=== PATIENT | female | born 1995 | race Two or more races ===

== ENCOUNTER 2023-07-31 14:03 | Emergency (ER) | payer MEDICAID, OTHER ==
[~2023-07-31] VITALS: Ht 162.6 cm; Wt 75.4 kg
[2023-07-31 15:10] LABS: Basophils # (auto) 0 10 ^3/uL (0-0.2); Basophils % (auto) 0.3 % (0.0-2.0); Eosinophils # (auto) 0 10 ^3/uL (0-0.8); Eosinophils % (auto) 0.1 % (0.0-7.0); Hematocrit 41.5 % (36.0-46.0); Hemoglobin 13.8 g/dL (12.2-16.2); Lymphocytes # (auto) 0.8 10 ^3/uL (0.4-5.4); Lymphocytes % (auto) 11.1 % (10.0-50.0); Mean Corpuscular Hemoglobin 29.5 pg (28.0-32.0); Mean Corpuscular Hgb Conc. 33.3 g/dL (32.0-36.0); Mean Corpuscular Volume 88.4 fL (80.0-100.0); Monocytes # (auto) 0.3 10 ^3/uL (0-1.3); Monocytes % (auto) 3.7 % (0.0-12.0); Neutrophils # (auto) 6.3 10 ^3/uL (1.6-8.6); Neutrophils % (auto) 84.8 % (37.0-80.0); Red Cell Distribution Width 13.5 % (11.8-14.3); White Blood Cell 7.4 10^3/uL (4.4-10.8)
[2023-07-31 15:22] LABS: Alanine Aminotransferase 12 U/L (7-40); Albumin 4.5 g/dL (3.2-4.8); Alkaline Phosphatase 83 U/L (46-116); Anion Gap 11 (5-15); Aspartate Aminotransferase 22 U/L (13-40); BUN/Creatinine Ratio 16.9 (10.0-20.0); Blood Urea Nitrogen 13 mg/dL (9-23); Calcium 9.4 mg/dL (8.5-10.1); Carbon Dioxide 25 mmol/L (20-30); Chloride 104 mmol/L (98-107); Glucose 97 mg/dL (74-106); Potassium 3.8 mmol/L (3.5-5.1); Sodium 140 mmol/L (136-145); Total Protein 7.2 g/dL (5.7-8.2)
[2023-07-31 16:41] VITALS: BP 107/71; PULSE 110; RESP 16; O2SAT 100
[2023-07-31] MEDS: THIAMINE 100mg/ml INJ (200mg/2ml VIAL) IV ONE (16:59)
[2023-07-31] MEDS: SODIUM CHLORIDE 0.9% 1,000 ML IVB ONE (16:59)
== END 2023-07-31 18:46 | disposition home or self-care (01) ==
LOC: ER 14:03
DX: F10.10 Alcohol abuse, uncomplicated (principal); F17.210 Nicotine dependence, cigarettes, uncomplicated; F15.90 Other stimulant use, unspecified, uncomplicated; Y90.0 Blood alcohol level of less than 20 mg/100 ml
CPT/HCPCS: 36415; 80053; 84484; 85025; 93005; 96361; 96374; 99284; J3411; J7030

== ENCOUNTER 2023-10-26 22:21 | Emergency (ER) | payer MEDICAID ==
[~2023-10-26] VITALS: Ht 162.6 cm; Wt 77.8 kg
[2023-10-26 23:23] LABS: Basophils # (auto) 0.1 10 ^3/uL (0-0.2); Eosinophils # (auto) 0.3 10 ^3/uL (0-0.8); Eosinophils % (auto) 3.6 % (0.0-7.0); Hemoglobin 12.9 g/dL (12.2-16.2); Lymphocytes # (auto) 3.5 10 ^3/uL (0.4-5.4); Lymphocytes % (auto) 42.2 % (10.0-50.0); Mean Corpuscular Hemoglobin 29.2 pg (28.0-32.0); Mean Corpuscular Hgb Conc. 33.1 g/dL (32.0-36.0); Mean Corpuscular Volume 88.3 fL (80.0-100.0); Monocytes # (auto) 0.4 10 ^3/uL (0-1.3); Monocytes % (auto) 4.5 % (0.0-12.0); Neutrophils % (auto) 48.7 % (37.0-80.0); Red Blood Cells 4.41 10^6/uL (4.0-5.20); Red Cell Distribution Width 14.3 % (11.8-14.3); White Blood Cell 8.3 10^3/uL (4.4-10.8)
[2023-10-26 23:41] LABS: INR 0.97 (0.9-1.15); Partial Thromboplastin Time 24.5 SEC (24.5-34.5); Prothrombin Time 10.3 sec (9.3-11.8)
[2023-10-26 23:42] LABS: Albumin 3.8 g/dL (3.2-4.8); Alkaline Phosphatase 62 U/L (46-116); Anion Gap 7 (5-15); Aspartate Aminotransferase 11 U/L (13-40); BUN/Creatinine Ratio 10.3 (10.0-20.0); Bilirubin, Total 0.2 mg/dL (0.2-1.0); Blood Urea Nitrogen 8 mg/dL (9-23); Calcium 9.5 mg/dL (8.7-10.4); Carbon Dioxide 23 mmol/L (20-30); Chloride 108 mmol/L (98-107); Glucose 100 mg/dL (74-106); Lipase 33 U/L (12-53); Magnesium 1.8 mg/dL (1.6-2.6); Potassium 3.7 mmol/L (3.5-5.1); Sodium 138 mmol/L (136-145); Total Protein 6.6 g/dL (5.7-8.2)
[2023-10-26 23:43] LABS: Alanine Aminotransferase < 9 U/L (7-40)
[2023-10-27] MEDS ORDERED: TRAM-626 PO (01:14)
[2023-10-27] MEDS ORDERED: ZOFR4T PO (01:14)
[2023-10-27 01:31] VITALS: BP 111/74; PULSE 77; RESP 20; TEMP 98; O2SAT 97
[2023-10-27] MEDS: KETOROLAC TROMETH 30 MG/ML 1ML VIAL IM ONE (01:41)
[2023-10-27] MEDS: ONDANSETRON ODT 4 MG TAB PO ONE (01:41)
== END 2023-10-27 01:48 | disposition home or self-care (01) ==
LOC: ER 22:21
DX: K80.20 Calculus of gallbladder without cholecystitis without obstruction (principal); F17.210 Nicotine dependence, cigarettes, uncomplicated; F15.90 Other stimulant use, unspecified, uncomplicated; Z79.899 Other long term (current) drug therapy
CPT/HCPCS: 36415; 71045; 76705; 80053; 83690; 83735; 83880; 84443; 84484; 85025; 85610; 85730; 93005; 96372; 99285; J1885; Q0162

== ENCOUNTER 2023-12-10 19:05 | Emergency (ER) | payer MEDICAID ==
[~2023-12-10] VITALS: Ht 162.6 cm; Wt 71.6 kg
[~2023-12-10 19:05] MED LIST: TRAM-626 PO; ZOFR4T PO
[2023-12-10 19:08] VITALS: BP 110/68; PULSE 85; RESP 20; O2SAT 97
== END 2023-12-10 23:31 | disposition left against medical advice (07) ==
LOC: ER 19:05
DX: M79.10 Myalgia, unspecified site (principal); Z53.21 Procedure and treatment not carried out due to patient leaving prior to being seen by health care provider

== ENCOUNTER 2023-12-15 17:52 | Inpatient (IN) | payer MEDICAID ==
[~2023-12-15] VITALS: Ht 162.6 cm; Wt 168.8 kg
[2023-12-15] MEDS: D5W/SOD CHLO 0.9% 1,000 ML IV SCH (03:00)
[2023-12-15 19:56] LABS: Alanine Aminotransferase 14 U/L (7-40); Albumin 4.6 g/dL (3.2-4.8); Alkaline Phosphatase 64 U/L (46-116); Anion Gap 9 (5-15); Aspartate Aminotransferase 9 U/L (13-40); BUN/Creatinine Ratio 11.9 (10.0-20.0); Bilirubin, Total 0.4 mg/dL (0.2-1.0); Blood Urea Nitrogen 8 mg/dL (9-23); Calcium 10.2 mg/dL (8.7-10.4); Carbon Dioxide 19 mmol/L (20-30); Chloride 111 mmol/L (98-107); Glucose 90 mg/dL (74-106); Lipase 40 U/L (12-53); Potassium 3.6 mmol/L (3.5-5.1); Sodium 139 mmol/L (136-145); Total Protein 7.5 g/dL (5.7-8.2)
[2023-12-15 20:07] LABS: Basophils # (auto) 0.1 10 ^3/uL (0-0.2); Eosinophils # (auto) 0.3 10 ^3/uL (0-0.8); Eosinophils % (auto) 3.2 % (0.0-7.0); Hematocrit 42.3 % (36.0-46.0); Hemoglobin 14.5 g/dL (12.2-16.2); Lymphocytes # (auto) 3.4 10 ^3/uL (0.4-5.4); Lymphocytes % (auto) 42.2 % (10.0-50.0); Mean Corpuscular Hemoglobin 30.3 pg (28.0-32.0); Mean Corpuscular Hgb Conc. 34.3 g/dL (32.0-36.0); Mean Corpuscular Volume 88.3 fL (80.0-100.0); Monocytes # (auto) 0.3 10 ^3/uL (0-1.3); Monocytes % (auto) 3.7 % (0.0-12.0); Neutrophils % (auto) 49.9 % (37.0-80.0); Nucleated Red Blood Cells % 0.1 %; Red Blood Cells 4.79 10^6/uL (4.0-5.20); Red Cell Distribution Width 13.9 % (11.8-14.3); White Blood Cell 8.1 10^3/uL (4.4-10.8)
[2023-12-15] MEDS: SODIUM CHLORIDE 0.9% 1,000 ML IVB ONE (20:09)
[2023-12-15] MEDS: ONDANSETRON HCL 4 MG/2 ML VIAL IV ONE (20:15)
[2023-12-15] MEDS: MORPHINE SULFATE 4 MG/ML SYR/VIAL IV ONE (20:15)
[2023-12-15 20:36] LABS: Urine Bacteria FEW /hpf (None Seen); Urine Blood Negative /uL (Negative); Urine Budding Yeast OCCASIONAL /hpf (None Seen); Urine Clarity Clear (Clear); Urine Color Light-Yellow (Yellow); Urine Mucus FEW (None Seen); Urine Protein, UAD Negative (Negative); Urine Specific Gravity 1.019 (1.001-1.035); Urine Urobilinogen Normal (Negative); Urine WBC 5 /hpf (0 - 5)
[2023-12-15] MEDS: PIPERACILLIN-TAZO 4.5GM 100 ML IV ONE (20:51)
[2023-12-15] MEDS ORDERED: DOCUSATE SOD 100 MG CAP PO PRN (23:00)
[2023-12-15] MEDS ORDERED: ACETAMINOPHEN 325 MG TAB PO PRN (23:00)
[2023-12-15] MEDS: MORPHINE SULFATE INJ 2 MG/ml SYRG IV PRN (23:53)
[2023-12-15] MEDS: ONDANSETRON HCL 4 MG/2 ML VIAL IV PRN (23:53)
[2023-12-16] VITALS (8 sets, daily range): BP systolic 92–115; BP diastolic 55–76; PULSE 58–75; RESP 16–20; TEMP 97.7–98.9; O2SAT 96–100
[2023-12-16] MEDS ORDERED: MORPHINE SULFATE INJ 2 MG/ml SYRG IV PRN
[2023-12-16] MEDS ORDERED: NITROGLYCERIN 0.4 MG SL TAB SL PRN
[2023-12-16] MEDS ORDERED: PANT40T PO (04:08)
[2023-12-16] MEDS ORDERED: CEPH500C PO (04:08)
[2023-12-16] MEDS: PIPERACILLIN-TAZOB 3.375GM 100 ML IV SCH (05:54)
[2023-12-16 06:13] LABS: Basophils # (auto) 0.1 10 ^3/uL (0-0.2); Basophils % (auto) 0.7 % (0.0-2.0); Eosinophils # (auto) 0.4 10 ^3/uL (0-0.8); Hematocrit 37.2 % (36.0-46.0); Hemoglobin 12.2 g/dL (12.2-16.2); Lymphocytes # (auto) 3.3 10 ^3/uL (0.4-5.4); Lymphocytes % (auto) 40.2 % (10.0-50.0); Mean Corpuscular Hemoglobin 29.2 pg (28.0-32.0); Mean Corpuscular Hgb Conc. 32.8 g/dL (32.0-36.0); Monocytes # (auto) 0.4 10 ^3/uL (0-1.3); Monocytes % (auto) 5.2 % (0.0-12.0); Neutrophils # (auto) 4.1 10 ^3/uL (1.6-8.6); Neutrophils % (auto) 48.9 % (37.0-80.0); Red Blood Cells 4.18 10^6/uL (4.0-5.20); Red Cell Distribution Width 14.1 % (11.8-14.3); White Blood Cell 8.3 10^3/uL (4.4-10.8)
[2023-12-16 06:43] LABS: Alanine Aminotransferase 11 U/L (7-40); Albumin 3.5 g/dL (3.2-4.8); Alkaline Phosphatase 49 U/L (46-116); Anion Gap 5 (5-15); Aspartate Aminotransferase < 8 U/L (13-40); BUN/Creatinine Ratio 12.5 (10.0-20.0); Blood Urea Nitrogen 8 mg/dL (9-23); Calcium 8.3 mg/dL (8.7-10.4); Carbon Dioxide 24 mmol/L (20-30); Chloride 111 mmol/L (98-107); Glucose 106 mg/dL (74-106); Potassium 3.8 mmol/L (3.5-5.1); Sodium 140 mmol/L (136-145)
[2023-12-16 06:44] LABS: Bilirubin, Total 0.4 mg/dL (0.2-1.0); Total Protein 5.9 g/dL (5.7-8.2)
[2023-12-16] MEDS: HYDROcodone-ACET 5/325MG TAB PO PRN (11:12)
[2023-12-16] MEDS: SODIUM CHLORIDE 0.9% 1,000 ML IV SCH (14:00)
[2023-12-17] VITALS (9 sets, daily range): BP systolic 93–117; BP diastolic 59–75; PULSE 72–97; RESP 14–20; TEMP 97.7–98.2; O2SAT 95–100
[2023-12-17 06:37] LABS: Alanine Aminotransferase 12 U/L (7-40); Alkaline Phosphatase 57 U/L (46-116); Anion Gap 6 (5-15); Aspartate Aminotransferase 15 U/L (13-40); Calcium 9.1 mg/dL (8.5-10.1); Carbon Dioxide 23 mmol/L (20-30); Chloride 108 mmol/L (98-107); Glucose 92 mg/dL (74-106); Potassium 3.8 mmol/L (3.5-5.1); Sodium 137 mmol/L (136-145)
[2023-12-17 06:38] LABS: Bilirubin, Total 0.8 mg/dL (0.2-1.0); Total Protein 6.4 g/dL (5.7-8.2)
[2023-12-17 06:39] LABS: Basophils # (auto) 0.1 10 ^3/uL (0-0.2); Basophils % (auto) 0.8 % (0.0-2.0); Eosinophils # (auto) 0.4 10 ^3/uL (0-0.8); Eosinophils % (auto) 6.5 % (0.0-7.0); Hematocrit 40.2 % (36.0-46.0); Hemoglobin 13.4 g/dL (12.2-16.2); Lymphocytes # (auto) 3.2 10 ^3/uL (0.4-5.4); Lymphocytes % (auto) 52.2 % (10.0-50.0); Mean Corpuscular Hgb Conc. 33.3 g/dL (32.0-36.0); Mean Corpuscular Volume 90.2 fL (80.0-100.0); Monocytes # (auto) 0.3 10 ^3/uL (0-1.3); Monocytes % (auto) 4.4 % (0.0-12.0); Neutrophils # (auto) 2.2 10 ^3/uL (1.6-8.6); Neutrophils % (auto) 36.1 % (37.0-80.0); Nucleated Red Blood Cells % 0.2 %; Red Blood Cells 4.46 10^6/uL (4.0-5.20); Red Cell Distribution Width 14.2 % (11.8-14.3); White Blood Cell 6.2 10^3/uL (4.4-10.8)
[2023-12-17 06:50] LABS: BUN/Creatinine Ratio 6.3 (10.0-20.0); Blood Urea Nitrogen < 5 mg/dL (9-23)
[2023-12-17] MEDS: ACETAMINOPHEN IV 100 ML IV ONE (08:52)
[2023-12-17] MEDS: GABAPENTIN 400 MG CAP ONE (08:52)
[2023-12-17] MEDS: CELECOXIB 100 MG CAP ONE (08:52)
[2023-12-17] MEDS: CELECOXIB 100 MG CAP PO ONE (09:00)
[2023-12-17] MEDS: GABAPENTIN 400 MG CAP PO ONE (09:00)
[2023-12-17] MEDS: ACETAMINOPHEN IV 1000 MG/100ML (10MG/ML) IV ONE (09:00)
[2023-12-17] MEDS ORDERED: DexAMETHasone SOD PHOS 10MG/1ML VIAL INJ ONE (09:02)
[2023-12-17] MEDS ORDERED: fentaNYL CITRATE 100 MCG/2 ML VL ONE (09:02)
[2023-12-17] MEDS ORDERED: LIDOCAINE 2% (LOCAL ANESTH.) PF 5ml SDV ONE (09:02)
[2023-12-17] MEDS ORDERED: KETOROLAC TROMETH 30 MG/ML 1ML VIAL ONE (09:02)
[2023-12-17] MEDS ORDERED: ONDANSETRON HCL 4 MG/2 ML VIAL ONE (09:02)
[2023-12-17] MEDS ORDERED: ROCURONIUM 10MG/ML 10ML VIAL IV ONE (09:02)
[2023-12-17] MEDS ORDERED: SUGAMMADEX 200mg/2ml Vial (100MG/ML) IV ONE (09:02)
[2023-12-17] MEDS ORDERED: PROPOFOL 10 MG/ML 20 ML IV ONE (09:02)
[2023-12-17] MEDS ORDERED: GLYCOPYRROLATE 0.2 MG/ML 1ML VIAL ONE (09:02)
[2023-12-17] MEDS ORDERED: KETAMINE 50mg/ML 1ml syringe ONE (09:02)
[2023-12-17] MEDS: LIDOCAINE W/ EPINEPHRINE 1% 20ML VIAL ONE (09:38)
[2023-12-17] MEDS ORDERED: ePHEDrine SULFATE 50 MG/ML AMP IV PRN (10:15)
[2023-12-17] MEDS ORDERED: ONDANSETRON HCL 4 MG/2 ML VIAL IV PRN (10:15)
[2023-12-17] MEDS ORDERED: hydrALAZINE HCL 20 MG/ML VL IV PRN (10:15)
[2023-12-17] MEDS ORDERED: NALOXONE HCL 0.4 MG/ML VIAL IV PRN (10:15)
[2023-12-17] MEDS ORDERED: FLUMAZENIL 0.1 MG/ML INJ 10ML MDV IV PRN (10:15)
[2023-12-17] MEDS ORDERED: LABETALOL HCL 5 MG/ML 4ML SYRINGE IV PRN ×2 (10:15→12:45)
[2023-12-17] MEDS ORDERED: fentaNYL CITRATE 100 MCG/2 ML VL IV PRN (10:15)
[2023-12-17] MEDS: HYDROmorphone HCL 2 MG/ML VL/or syr IV PRN (10:42)
[2023-12-17] MEDS: oxyCODONE HCL 5MG TAB PO PRN (11:00)
[2023-12-17] MEDS ORDERED: LABETALOL HCL 5 MG/ML ML 20ML VIAL IV PRN (12:45)
[2023-12-18] VITALS (7 sets, daily range): BP systolic 92–106; BP diastolic 53–65; PULSE 62–70; RESP 16–18; TEMP 36.8; O2SAT 96–100
[2023-12-18 06:56] LABS: Basophils # (auto) 0 10 ^3/uL (0-0.2); Basophils % (auto) 0.1 % (0.0-2.0); Eosinophils # (auto) 0 10 ^3/uL (0-0.8); Eosinophils % (auto) 0.2 % (0.0-7.0); Hematocrit 35.1 % (36.0-46.0); Hemoglobin 11.9 g/dL (12.2-16.2); Lymphocytes # (auto) 2.7 10 ^3/uL (0.4-5.4); Lymphocytes % (auto) 30.5 % (10.0-50.0); Mean Corpuscular Hemoglobin 30.1 pg (28.0-32.0); Mean Corpuscular Volume 88.4 fL (80.0-100.0); Monocytes # (auto) 0.6 10 ^3/uL (0-1.3); Monocytes % (auto) 6.3 % (0.0-12.0); Neutrophils # (auto) 5.6 10 ^3/uL (1.6-8.6); Neutrophils % (auto) 62.9 % (37.0-80.0); Red Blood Cells 3.97 10^6/uL (4.0-5.20); Red Cell Distribution Width 13.7 % (11.8-14.3); White Blood Cell 8.8 10^3/uL (4.4-10.8)
[2023-12-18 06:58] LABS: Alanine Aminotransferase 17 U/L (7-40); Albumin 3.4 g/dL (3.2-4.8); Alkaline Phosphatase 46 U/L (46-116); Anion Gap 7 (5-15); Aspartate Aminotransferase 15 U/L (13-40); BUN/Creatinine Ratio 9.5 (10.0-20.0); Bilirubin, Total 0.6 mg/dL (0.2-1.0); Blood Urea Nitrogen 6 mg/dL (9-23); Calcium 8.7 mg/dL (8.7-10.4); Carbon Dioxide 22 mmol/L (20-30); Chloride 111 mmol/L (98-107); Glucose 111 mg/dL (74-106); Potassium 3.7 mmol/L (3.5-5.1); Sodium 140 mmol/L (136-145); Total Protein 5.7 g/dL (5.7-8.2)
[2023-12-18] MEDS ORDERED: TRAM-626 PO (17:33)
[2023-12-18] MEDS ORDERED: ZOFR4T PO (17:33)
[2023-12-18] MEDS ORDERED: AUG875T PO (17:33)
== END 2023-12-18 20:06 | disposition home or self-care (01) | DRG 263 ==
LOC: ER 17:57 → OVERFLOW 23:55 → WEST WING 12-16 01:44
PROVIDERS: ADMIT Nurse Practitioner Family; ATTEND Internal Medicine
PROC: 0FT44ZZ Resection of Gallbladder, Percutaneous Endoscopic Approach (ICD-10-PCS; principal; 2023-12-17 09:23)
DX: K81.0 Acute cholecystitis (principal); R71.0 Precipitous drop in hematocrit; F17.210 Nicotine dependence, cigarettes, uncomplicated; F41.9 Anxiety disorder, unspecified; N39.0 Urinary tract infection, site not specified
CPT/HCPCS: 36415; 76700; 80053; 81001; 83605; 83690; 84702; 85025; 87040; 96361; 96365; 96375; G0378; J0131; J1100; J1885; J2001; J2405; J2543; J2704; J3490; J7042

== ENCOUNTER 2024-02-24 14:27 | Emergency (ER) | payer MEDICAID ==
[~2024-02-24] VITALS: Ht 162.6 cm; Wt 70.3 kg
[~2024-02-24 14:27] MED LIST changes: +AUG875T PO; +PANT40T PO
[2024-02-24 16:07] VITALS: BP 106/69; PULSE 72; RESP 16; TEMP 98.8; O2SAT 100
[2024-02-24] MEDS ORDERED: PRED20TA2 PO (16:54)
[2024-02-24] MEDS ORDERED: IBUP-1456 PO (16:54)
[2024-02-24] MEDS ORDERED: AMOX875T3 PO (16:54)
== END 2024-02-24 17:16 | disposition home or self-care (01) ==
LOC: ER 14:27
DX: G51.0 Bell's palsy (principal); J01.90 Acute sinusitis, unspecified; F17.210 Nicotine dependence, cigarettes, uncomplicated; F41.9 Anxiety disorder, unspecified; Z79.2 Long term (current) use of antibiotics; Z79.899 Other long term (current) drug therapy
CPT/HCPCS: 70450

== ENCOUNTER 2024-05-04 12:59 | Emergency (ER) | payer MEDICAID ==
[~2024-05-04 12:59] MED LIST changes: +AMOX875T3 PO; +IBUP-1456 PO; +PRED20TA2 PO
--- NOTE | 2024-05-04 13:28 | ED.PDOC ---
History of Present Illness HPI Comments A 29 YEAR OLD FEMALE PRESENTS TO THE ED WITH COMPLAINT OF PELVIC PAIN AND NAUSEA DURING . PATIENT STATES SHE IS CURRENTLY ABOUT 6 WEEKS AND HAS BEEN EXPERIENCING PELVIC PAIN/CRAMPING WITH NAUSEA AND MILD DIZZINESS THAT STARTED YESTERDAY. PATIENT DENIES VISION CHANGES, SLURRED SPEECH, ONE-SIDED WEAKNESS, FACIAL DROOP, DYSURIA, HEMATURIA, VAGINAL SPOTTING/BLEEDING, FEVER, CHILLS, SHORTNESS OF BREATH, CHEST PAIN, ABDOMINAL PAIN, VOMITING, HEADACHE, OR OTHER COMPLAINTS. NO OTHER SYMPTOMS OR MODIFYING FACTORS AT THIS TIME. PATIENT IS ALERT, ORIENTED X 4, AND HAS STEADY GAIT. Chief Complaint: Pelvic Pain Time Seen by MD: 13:09 Primary Care Provider: BAILEE Reviewed Notes: Nurses Notes, Medications, Allergies Allergies: Coded Allergies: No Known Drug Allergy (Unverified Allergy, Unknown, 12/30/19) Home Meds Active Scripts Acetaminophen (Tylenol Extra Strength Fo) 500 Mg Tab, 500 MG PO TID, #30 TAB Prov:LISA PULLIAM 05/04/24 Ondansetron Odt 4MG Tab (ZOFRAN PO) 4 Mg Tb, 4 MG PO BID, #20 TAB ODT TAB-DISSOLVE IN MOUTH, THEN SWALLOW Prov:LISA PULLIAM 05/04/24 Ibuprofen (Ibuprofen) 800 Mg Tab, 1 TAB PO TID, #30 TAB Prov:LISA PULLIAM 02/24/24 Prednisone (Prednisone) 20 Mg Tab, 60 MG PO DAILY for 7 Days, #21 TAB Prov:ILSA PULLIAM 02/24/24 Amoxicillin Trihydrate (Amoxicillin) 875 Mg Tab, 1 TAB PO BID, #20 TAB Prov:LISA PULLIAM 02/24/24 Amoxicillin & Pot Clavulanate (AUGMENTIN TABLET) 875 Mg Tb, 875 MG PO BID for 7 Days, #14 TAB Prov:HUDSON ADAM MD 12/18/23 Tramadol HCl (Tramadol HCl) 50 Mg Tab, 50 MG PO BID PRN, #14 TAB Prov:HUDSON ADAM MD 12/18/23 Ondansetron Odt 4MG Tab (ZOFRAN PO) 4 Mg Tb, 4 MG PO TID PRN, #20 TAB ODT TAB-DISSOLVE IN MOUTH, THEN SWALLOW Prov:HUDSON ADAM MD 12/18/23 Reported Medications Pantoprazole Sodium Sesquihydr (Pantoprazole Sodium) 40 Mg Tab, 40 MG PO, TAB 12/16/23 Information Source: Patient Mode of Arrival: Ambulatory Severity: Moderate Timing: Days Duration: Since onset, Days Prehospital treatment: None Medication Refill: For: Other (PELVIC PAIN AND NAUSEA DURING ) Past Medical History PAST MEDICAL HISTORY: Anxiety Surgical History: Denies all surgeries MARKETING REPORTING ANALYST History: Denies all MARKETING REPORTING ANALYST Hx Family History Family History: Reviewed,noncontributory to illness Social History Smoker: Cigarettes Alcohol: Occasionally Drugs: Marijuana Lives In: Home Constitutional: reports: others (ANXIOUS ); denies: chills, diaphoresis, fatigue, fever, malaise, sweats, weakness EENTM: denies: blurred vision, double vision, ear bleeding, ear discharge, ear drainage, ear pain, ear ringing, eye pain, eye redness, hearing loss, mouth pain, mouth swelling, nasal discharge, nose bleeding, nose congestion, nose pain, photophobia, tearing, throat pain, throat swelling, voice changes, others Respiratory: denies: cough, hemoptysis, orthopnea, SOB at rest, shortness of breath, SOB with excertion, stridor, wheezing, others Gastrointestinal: reports: nausea, vomiting; denies: abdomen distended, abdominal pain, blood streaked bowels, constipated, diarrhea, dysphagia, difficulty swallowing, hematemesis, melena, poor appetite, poor fluid intake, rectal bleeding, rectal pain, others Genitourinary: reports: pain (PELVIC ), ; denies: abnormal vagina bleeding, burning, dyspareunia, dysuria, flank pain, frequency, hematuria, incontinence, vagina discharge, urgency, others Neurological: denies: dizziness, fainting, headache, left sided numbness, left sided weakness, numbness, paresthesia, pre-existing deficit, right sided numbness, right sided weakness, seizure, speech problems, tingling, tremors, weakness, others Musculoskeletal: denies: back pain, gout, joint pain, joint swelling, muscle pain, muscle stiffness, neck pain, others Integumetry: denies: bruises, change in color, change in hair/nails, dryness, laceration, lesions, lumps, rash, wounds, others Allergic/Immunocompromised: denies: Difficulty Healing, Frequent Infections, Hi ves, Itching, others Hematologic/Lymphatic: denies: anemia, blood clots, easy bleeding, easy bruising, swollen glands, others Endocrine: denies: excessive hunger, excessive sweating, excessive thirst, excessive urination, flushing, intolerance to cold, intolerance to heat, unexplained weight gain, unexplained weight loss, others Psychiatric: reports: anxiety; denies: bipolar disorder, depression, hopeless, panic disorder, schizophrenia, sleepless, suicidal, others All Other Systems: Reviewed and Negative Physical Exam General Appearance: No Apparent Distress, Normal, Other (ANXIOUS ) HEENT: Normal ENT Inspection, PERRL/EOMI, Pharynx Normal, TMs Normal Neck: Full Range of Motion, Non-Tender, Normal, Normal Inspection Respiratory: Chest Non-Tender, Lungs Clear, No Accessory Muscle Use, No Respiratory Distress, Normal Breath Sounds Cardiovascular: No Edema, No JVD, No Murmur, No Gallop, Normal Peripheral Pulses, Regular Rate/Rhythm Breast Exam: Deferred Gastrointestinal: No Organomegaly, Non Tender, No Pulsatile Mass, Normal Bowel Sounds, Soft Genitalia: Deferred Pelvic: Normal External Exam, Tender Adnexa (TENDERNESS PELVIC, NO GUARDING AND REBOUND TENDERNESS. ) Rectal: Deferred Extremities: No calf tenderness, Normal capillary refill, Normal inspection, Normal range of motion, Non-tender, No pedal edema Musculoskeletal : Apperance: Normal Neurologic: Alert, mobile lab technician II-XII nml as Tested, No Motor Deficits, Normal Affect, Normal Mood, No Sensory Deficits Cerebellar Function: Normal Reflexes: Normal Skin: Dry, Normal Color, Warm Peripheral Pulses: 2+ carotid (R), 2+ carotid (L) Lymphatic: No Adenopathy Was a procedure done? Was a procedure done?: No Differential Dx Considerations may include: PELVIC PAIN, 1ST TRIMESTER , UTI, VOMITING OF X-Ray, Labs, Meds, VS Vital Signs Date Time Temp Pulse Resp B/P (MAP) Pulse Ox O2 Delivery O2 Flow Rate FiO2 05/04/24 14:07 97 97 99 Room Air 05/04/24 14:07 97.8 97 16 108/73 (85) 99 97.8 05/04/24 13:36 97.8 97 16 108/73 (85) 99 Lab Test 05/04/24 15:00 05/04/24 13:34 Range/Units Urine Color Light-yellow Yellow Urine Clarity Clear Clear Urine pH 8.5 5.0-9.0 Urine Specific [place] 1.015 1.001-1.035 Urine Protein Negative Negative Urine Ketones Negative Negative Urine Blood Negative Negative /uL Urine Nitrite Negative Negative Urine Bilirubin Negative Negative Urine Urobilinogen Normal Negative mg/dL Urine Leukocyte Esterase 1+ Negative /uL Urine RBC 2 0 - 4 /hpf Urine WBC 4 0 - 5 /hpf Urine Squamous Epithelial Cells Few <5 /hpf Urine Bacteria Few H None Seen /hpf Urine Glucose Normal Normal mg/dL White Blood Count 8.3 4.4-10.8 10^3/uL Red Blood Count 4.56 4.0-5.20 10^6/uL Hemoglobin 13.6 12.2-16.2 g/dL Hematocrit 40.1 36.0-46.0 % Mean Corpuscular Volume 88.0 80.0-100.0 fL Mean Corpuscular Hemoglobin 29.9 28.0-32.0 pg Mean Corpuscular Hemoglobin Concent 33.9 32.0-36.0 g/dL Red Cell Distribution Width 14.1 11.8-14.3 % Platelet Count 224 140-450 10^3/uL Mean Platelet Volume 8.9 6.9-10.8 fL Neutrophils (%) (Auto) 61.6 37.0-80.0 % Lymphocytes (%) (Auto) 30.7 10.0-50.0 % Monocytes (%) (Auto) 5.0 0.0-12.0 % Eosinophils (%) (Auto) 1.9 0.0-7.0 % Basophils (%) (Auto) 0.8 0.0-2.0 % Neutrophils # (Auto) 5.1 1.6-8.6 10 ^3/uL Lymphocytes # (Auto) 2.5 0.4-5.4 10 ^3/uL Monocytes # (Auto) 0.4 0-1.3 10 ^3/uL Eosinophils # (Auto) 0.2 0-0.8 10 ^3/uL Basophils # (Auto) 0.1 0-0.2 10 ^3/uL Nucleated Red Blood Cells 0.0 % Sodium Level 140 136-145 mmol/L Potassium Level 3.3 L 3.5-5.1 mmol/L Chloride Level 108 H 98-107 mmol/L Carbon Dioxide Level 22 20-31 mmol/L Anion Gap 10 5-15 Blood Urea Nitrogen 9 9-23 mg/dL Creatinine 0.73 0.550-1.02 mg/dL Glomerular Filtration Rate Calc 114 >90 mL/min BUN/Creatinine Ratio 12.3 10.0-20.0 Serum Glucose 74 74-106 mg/dL Calcium Level 9.9 8.7-10.4 mg/dL Beta HCG, Quantitative 04635.0 H 1.5-4.2 mIU/mL Current Medications Medications (Trade) Dose Ordered Sig/Sebastián Route Start Time Stop Time Status Last Admin Sodium Chloride 1,000 ml @ 1,000 mls/hr Q1H ONCE IV 05/04/24 13:30 05/04/24 14:29 DC 05/04/24 13:30 Ondansetron HCl (Zofran) 4 mg ONCE ONCE IV 05/04/24 13:30 05/04/24 13:31 DC 05/04/24 13:30 OB ULTRASOUND <14 WEEKS: HISTORY: PELVIC PAIN TECHNIQUE: Multiple real-time grayscale sonographic images of the pelvis with duplex Doppler color flow, spectral and M-mode analysis. TRANSDUCERS: Transabdominal FINDINGS: The uterus measures 10.1 x 5.8 x 5.2 cm The cervix is not well-visualized Right ovary nonvisualized Left ovary measures 4.2 x 3.6 x 3.7 cm with normal Doppler color flow left ovarian cystic structure measuring up to 3.6 cm, possibly corpus luteum cyst. IUP single live fetus at 5 weeks 5 days average ultrasound age based on mean crown-rump length of 0.40 cm and gestational sac size of 1.06 cm heart rate detected at 113 beats per minute. Yolk sac is present. Amniotic fluid subjectively within normal limits Amarilis-gestational space: Crescentic hypoechoic structure adjacent to the gestational sac measuring 1.5 x 0.7 x 1.9 cm, consistent with subchorionic hemorrhage. IMPRESSION: 1. IUP single live fetus 5 weeks 5 days AUA corresponding to an ROSE of 12/30/2024. 2. Subchorionic hemorrhage measuring up to 1.9 cm. HS:Y ATED BY: MARY CRENSHAW DO DICTATED DATE/TIME: 05/04/241518 SIGNED BY: MARY CRENSHAW DO SIGNED DATE/TIME: 05/04/241518 CC: X-Ray, Labs, Meds, VS Comment LABS ORDERED: CBC, BMP, UA, BETA HCG QUANT REVIEWED AND INTERPRETED RESULTS: BETA HCG QUANT 26,161.0 TREATMENT: NS 1 L IV, ZOFRAN 4 MG IV I HAVE REVIEWED THE PATIENT'S ULTRASOUND RESULTS AND I AGREE WITH THE RADIOLOGIST'S INTERPRETATION. I HAVE DISCUSSED THE ULTRASOUND RESULTS WITH THE PATIENT AND SHE UNDERSTANDS FULLY. PATIENT IS SAFE TO DISCHARGE AT THIS TIME. I HAVE ADVISED HER TO FOLLOW UP WITH HER PCP AND BUSINESS OFFICE REPRESENTATIVE IN 1-2 DAYS. Images Reviewed?: Images reviewed and evaluated by me Time of 1ST Reevaluation: 16:00 Reevaluation 1ST: Improved Patient Education/Counseling: Diagnosis, Treatment, Need For Follow Up Family Education/Counseling: Diagnosis, Treatment, Need For Follow Up Medical Screening: No EMC Exist At This Time Departure 1 Departure Time of Disposition: 16:00 Impression: Primary Impression: Nausea and vomiting during Additional Impression: Normal IUP (intrauterine ) on ultrasound Qualified Codes: Z34.91 - Encounter for supervision of normal , unspecified, first trimester Disposition: 01 HOME / SELF CARE / HOMELESS Condition: Stable Additional Instructions: FOLLOW-UP WITH PCP AND BUSINESS OFFICE REPRESENTATIVE IN 1 TO 2 DAYS. TAKE MEDICATIONS PRESCRIBED. RETURN TO ED FOR ANY NEW OR WORSENING SYMPTOMS. e-Prescriptions Acetaminophen (Tylenol Extra Strength Fo) 500 Mg Tab 500 MG PO TID, #30 TAB Prov: LISA PULLIAM 05/04/24 Ondansetron Odt 4MG Tab (ZOFRAN PO) 4 Mg Tb 4 MG PO BID, #20 TAB ODT TAB-DISSOLVE IN MOUTH, THEN SWALLOW Prov: LISA PULLIAM 05/04/24 Discharged With: Self Critical Care Note Critical Care Time?: No Stability Stability form required: No I personally scribed for LISA PULLIAM ([email or web address]) on 05/04/24 at 13:28. Elect ronically submitted by Osmar Tillman ([email or web address]). I personally scribed for LISA PULLIAM ([email or web address]) on 05/04/24 at 15:28. Elect ronically submitted by Osmar Tillman ([email or web address]). LISA PULLIAM May 04, 2024 13:28
[2024-05-04] MEDS: SODIUM CHLORIDE 0.9% 1,000 ML IV ONE (13:30)
[2024-05-04] MEDS: ONDANSETRON HCL 4 MG/2 ML VIAL IV ONE (13:30)
[2024-05-04 13:51] LABS: Basophils # (auto) 0.1 10 ^3/uL (0-0.2); Basophils % (auto) 0.8 % (0.0-2.0); Eosinophils # (auto) 0.2 10 ^3/uL (0-0.8); Eosinophils % (auto) 1.9 % (0.0-7.0); Hematocrit 40.1 % (36.0-46.0); Hemoglobin 13.6 g/dL (12.2-16.2); Lymphocytes # (auto) 2.5 10 ^3/uL (0.4-5.4); Lymphocytes % (auto) 30.7 % (10.0-50.0); Mean Corpuscular Hemoglobin 29.9 pg (28.0-32.0); Mean Corpuscular Hgb Conc. 33.9 g/dL (32.0-36.0); Monocytes # (auto) 0.4 10 ^3/uL (0-1.3); Neutrophils # (auto) 5.1 10 ^3/uL (1.6-8.6); Neutrophils % (auto) 61.6 % (37.0-80.0); Platelet Count (auto) 224 10^3/uL (140-450); Red Blood Cells 4.56 10^6/uL (4.0-5.20); Red Cell Distribution Width 14.1 % (11.8-14.3); White Blood Cell 8.3 10^3/uL (4.4-10.8)
[2024-05-04 13:55] LABS: Chloride 108 mmol/L (98-107); Potassium 3.3 mmol/L (3.5-5.1); Sodium 140 mmol/L (136-145)
[2024-05-04 13:56] LABS: Anion Gap 10 (5-15); Calcium 9.9 mg/dL (8.7-10.4); Carbon Dioxide 22 mmol/L (20-31)
[2024-05-04 14:01] LABS: BUN/Creatinine Ratio 12.3 (10.0-20.0); Blood Urea Nitrogen 9 mg/dL (9-23); Glucose 74 mg/dL (74-106)
[2024-05-04 14:07] VITALS: BP 108/73; PULSE 97; RESP 97; TEMP 97.8; O2SAT 99
--- NOTE | 2024-05-04 15:21 | DVH ---
OB ULTRASOUND <14 WEEKS: HISTORY: PELVIC PAIN TECHNIQUE: Multiple real-time grayscale sonographic images of the pelvis with duplex Doppler color f low, spectral and M-mode analysis. TRANSDUCERS: Transabdominal FINDINGS: The uterus measures 10.1 x 5.8 x 5.2 cm The cervix is not well-visualized Right ovary nonvisualized Left ovary measures 4.2 x 3.6 x 3.7 cm with normal Doppler color flow left ovarian cystic structure m easuring up to 3.6 cm, possibly corpus luteum cyst. IUP single live fetus at 5 weeks 5 days average ultrasound age based on mean crown-rump length of 0.4 0 cm and gestational sac size of 1.06 cm heart rate detected at 113 beats per minute. Yolk sac is present. Amniotic fluid subjectively within normal limits Amarilis-gestational space: Crescentic hypoechoic structure adjacent to the gestational sac measuring 1.5 x 0.7 x 1.9 cm, consistent with subchorionic hemorrhage. IMPRESSION: 1. IUP single live fetus 5 weeks 5 days AUA corresponding to an ROSE of 12/30/2024. 2. Subchorionic hemorrhage measuring up to 1.9 cm. HS:Y
[2024-05-04 15:24] LABS: Urine Bacteria FEW /hpf (None Seen); Urine Blood Negative /uL (Negative); Urine Clarity Clear (Clear); Urine Color Light-Yellow (Yellow); Urine Protein, UAD Negative (Negative); Urine Specific Gravity 1.015 (1.001-1.035); Urine Urobilinogen Normal (Negative); Urine WBC 4 /hpf (0 - 5); Urine pH 8.5 (5.0-9.0)
[2024-05-04] MEDS ORDERED: ZOFR4T PO (15:57)
[2024-05-04] MEDS ORDERED: ACET-1304 PO (15:57)
[2024-05-04] MEDS: ACETAMINOPHEN 500 MG TAB PO ONE (16:03)
== END 2024-05-04 16:03 | disposition home or self-care (01) ==
LOC: ER 12:59
DX: O21.0 Mild hyperemesis gravidarum (principal); F17.210 Nicotine dependence, cigarettes, uncomplicated; F12.90 Cannabis use, unspecified, uncomplicated; Z3A.01 Less than 8 weeks gestation of pregnancy; Z79.899 Other long term (current) drug therapy
CPT/HCPCS: 36415; 76801; 80048; 81001; 84702; 85025; 96361; 96374; 99285; J2405; J7030

== ENCOUNTER 2024-05-16 13:26 | Emergency (ER) | payer MEDICAID ==
[~2024-05-16] VITALS: Ht 162.6 cm; Wt 69.7 kg
[~2024-05-16 13:26] MED LIST changes: +ACET-1304 PO
[2024-05-16 14:00] VITALS: BP 108/74; PULSE 78; RESP 20; O2SAT 100
--- NOTE | 2024-05-16 14:33 | ED.PDOC ---
History of Present Illness(SKN HPI Comments A 29 YEAR OLD FEMALE PRESENTS TO THE ED WITH COMPLAINT OF SKIN AVULSION OF RIGHT THUMB. PATIENT STATES SHE WAS ACCIDENTALLY CUT HER RIGHT THUMB WITH A JAVA WEB ARCHITECT AND SUSTAINED A SKIN AVULSION. BLEEDING IS CONTROLLED AT THIS TIME. PATIENT DENIES FEVER, CHILLS, SHORTNESS OF BREATH, CHEST PAIN, ABDOMINAL PAIN, NAUSEA, VOMITING, HEADACHE, OR OTHER COMPLAINTS. NO OTHER SYMPTOMS OR MODIFYING FACTORS AT THIS TIME. PATIENT IS ALERT, ORIENTED X 4, AND HAS STEADY GAIT. Chief Complaint: Wound Check Time Seen by MD: 13:37 Primary Care Provider: BAILEE History of Present Illness: Nurses Notes, Medications, Allergies Allergies: Coded Allergies: No Known Drug Allergy (Unverified Allergy, Unknown, 12/30/19) Home Meds Active Scripts Acetaminophen (Tylenol Extra Strength Fo) 500 Mg Tab, 500 MG PO TID, #30 TAB Prov:LISA PULLIAM 05/04/24 Ondansetron Odt 4MG Tab (ZOFRAN PO) 4 Mg Tb, 4 MG PO BID, #20 TAB ODT TAB-DISSOLVE IN MOUTH, THEN SWALLOW Prov:LISA PULLIAM 05/04/24 Ibuprofen (Ibuprofen) 800 Mg Tab, 1 TAB PO TID, #30 TAB Prov:LISA PULLIAM 02/24/24 Prednisone (Prednisone) 20 Mg Tab, 60 MG PO DAILY for 7 Days, #21 TAB Prov:LISA PULLIAM 02/24/24 Amoxicillin Trihydrate (Amoxicillin) 875 Mg Tab, 1 TAB PO BID, #20 TAB Prov:LISA PULLIAM 02/24/24 Amoxicillin & Pot Clavulanate (AUGMENTIN TABLET) 875 Mg Tb, 875 MG PO BID for 7 Days, #14 TAB Prov:HUDSON ADAM MD 12/18/23 Tramadol HCl (Tramadol HCl) 50 Mg Tab, 50 MG PO BID PRN, #14 TAB Prov:HUDSON ADAM MD 12/18/23 Ondansetron Odt 4MG Tab (ZOFRAN PO) 4 Mg Tb, 4 MG PO TID PRN, #20 TAB ODT TAB-DISSOLVE IN MOUTH, THEN SWALLOW Prov:HUDSON ADAM MD 12/18/23 Reported Medications Pantoprazole Sodium Sesquihydr (Pantoprazole Sodium) 40 Mg Tab, 40 MG PO, TAB 12/16/23 Information Source: Patient Mode of Arrival: Ambulatory Severity: Moderate Timing: Hours Duration: Since onset, Days Prehospital treatment: None Location: Hand (RIGHT THUMB) Mechanism: Preceding Wound Occurence: Indoors Object: None Condition of Object: None Retained Foreign Body: No Wound Type: Other (SKIN AVULSION) Tetanus: UTD History of: None Associated Signs and Symptoms: None Past Medical History PAST MEDICAL HISTORY: Anxiety Surgical History: Denies all surgeries SURGICAL RESIDENT History: Denies all SURGICAL RESIDENT Hx Family History Family History: Reviewed,noncontributory to illness Social History Smoker: Cigarettes Alcohol: Occasionally Drugs: Marijuana Lives In: Home Constitutional: denies: chills, diaphoresis, fatigue, fever, malaise, sweats, weakness, others EENTM: denies: blurred vision, double vision, ear bleeding, ear discharge, ear drainage, ear pain, ear ringing, eye pain, eye redness, hearing loss, mouth pain, mouth swelling, nasal discharge, nose bleeding, nose congestion, nose pain, photophobia, tearing, throat pain, throat swelling, voice changes, others Respiratory: denies: cough, hemoptysis, orthopnea, SOB at rest, shortness of breath, SOB with excertion, stridor, wheezing, others Cardiovascular: denies: chest pain, dizzy spells, diaphoresis, Dyspnea on exertion, edema, irregular heart beat, left arm pain, lightheadedness, palpitations, PND, syncope, others Gastrointestinal: denies: abdomen distended, abdominal pain, blood streaked bowels, constipated, diarrhea, dysphagia, difficulty swallowing, hematemesis, melena, nausea, poor appetite, poor fluid intake, rectal bleeding, rectal pain, vomiting, others Neurological: denies: dizziness, fainting, headache, left sided numbness, left sided weakness, numbness, paresthesia, pre-existing deficit, right sided numbness, right sided weakness, seizure, speech problems, tingling, tremors, weakness, others Musculoskeletal: denies: back pain, gout, joint pain, joint swelling, muscle pain, muscle stiffness, neck pain, others Integumetry: reports: others (SKIN AVULSION OF RIGHT THUMB); denies: bruises, change in color, change in hair/nails, dryness, laceration, lesions, lumps, rash, wounds Allergic/Immunocompromised: denies: Difficulty Healing, Frequent Infections, Hives, Itching, others Hematologic/Lymphatic: denies: anemia, blood clots, easy bleeding, easy bruising, swollen glands, others Endocrine: denies: excessive hunger, excessive sweating, excessive thirst, excessive urination, flushing, intolerance to cold, intolerance to heat, unexplained weight gain, unexplained weight loss, others Psychiatric: denies: anxiety, bipolar disorder, depression, hopeless, panic dis order, schizophrenia, sleepless, suicidal, others All Other Systems: Reviewed and Negative Physical Exam General Appearance: No Apparent Distress, Normal HEENT: Normal ENT Inspection, PERRL/EOMI, Pharynx Normal, TMs Normal Neck: Full Range of Motion, Non-Tender, Normal, Normal Inspection Respiratory: Chest Non-Tender, Lungs Clear, No Accessory Muscle Use, No Respiratory Distress, Normal Breath Sounds Cardiovascular: No Edema, No JVD, No Murmur, No Gallop, Normal Peripheral Pulses, Regular Rate/Rhythm Breast Exam: Deferred Gastrointestinal: No Organomegaly, Non Tender, No Pulsatile Mass, Normal Bowel Sounds, Soft Genitalia: Deferred Pelvic: Deferred Rectal: Deferred Extremities: No calf tenderness, Normal capillary refill, Normal range of motion, No pedal edema, Tender (WITH A SKIN AVULSION ON LEFT VOLAR THUMB. ) Musculoskeletal : Apperance: Normal Neurologic: Alert, solo musician II-XII nml as Tested, No Motor Deficits, Normal Affect, Normal Mood, No Sensory Deficits Cerebellar Function: Normal Reflexes: Normal Skin: Dry, Normal Color, Warm, Wounds (A SKIN AVULSION ON LEFT VOLAR THUMB, NO BLEEDING AND BLOOD CLOTS. NEUROVASCULAR INTACT, NORMAL ROM. ) Peripheral Pulses: 2+ carotid (R), 2+ carotid (L) Lymphatic: No Adenopathy Was a procedure done? Was a procedure done?: No Differential Diagnosis (INTG) Differential Diagnosis: Abrasion, Laceration, Puncture Wound, Other (SKIN AVULSION) Differential Diagnosis: N/A Differential Diagnosis: N/A Abscess: N/A Differential Diagnosis: N/A X-Ray, Labs, Meds, VS Vital Signs Date Time Temp Pulse Resp B/P (MAP) Pulse Ox O2 Delivery O2 Flow Rate FiO2 05/16/24 14:40 98.8 05/16/24 14:35 98.8 05/16/24 14:00 98.8 78 20 108/74 (85) 100 98.8 05/16/24 14:00 78 20 100 Room Air 05/16/24 13:38 98.8 78 20 108/74 (85) 100 Current Medications Medications (Trade) Dose Ordered Sig/Sebastián Route Start Time Stop Time Status Last Admin Acetaminophen (Tylenol Tablet) 1,000 mg ONCE ONCE PO 05/16/24 14:45 05/16/24 14:46 05/16/24 14:35 X-Ray, Labs, Meds, VS Comment EXTERNAL NOTES: NONE LABS ORDERED: NONE REVIEWED AND INTERPRETED RESULTS: NONE IMAGING ORDERED: NONE INDEPENDENT HISTORIANS: NONE TREATMENT: PATIENT'S SKIN AVULSION ON HER RIGHT THUMB WAS CLEANED USING NORMAL SALINE AND THEN STERILE GAUZE WAS APPLIED. TYLENOL 1G PO PATIENT'S CASE AND RESULTS HAVE BEEN DISCUSSED WITH THE ED ATTENDING PHYSICIAN AND THEY AGREE WITH MY PLAN OF CARE. I HAVE INSTRUCTED THE PATIENT TO FOLLOW UP WITH THEIR PCP IN 1-2 DAYS. THE PATIENT FULLY UNDERSTANDS THEIR RESULTS AND ARE AWARE THEY NEED TO FOLLOW UP WITH THEIR PCP FOR FURTHER EVALUATION IF THEIR SYMPTOMS PERSIST. Time of 1ST Reevaluation: 15:00 Reevaluation 1ST: Improved Patient Education/Counseling: Diagnosis, Treatment, Need For Follow Up Family Education/Counseling: Diagnosis, Treatment, Need For Follow Up Medical Screening: No EMC Exist At This Time Departure 1 Departure Time of Disposition: 15:00 Impression: Primary Impression: Avulsion of skin of finger Qualified Codes: S61.209A - Unspecified open wound of unspecified finger without damage to nail, initial encounter Disposition: HOME / SELF CARE / HOMELESS Condition: Stable Additional Instructions: FOLLOW UP WITH PCP IN 1-2 DAYS. RETURN TO ED FOR ANY NEW OR WORSENING SYMPTOMS. Discharged With: Self Critical Care Note Critical Care Time?: No Stability Stability form required: No I personally scribed for LISA PULLIAM ([email or web address]) on 05/16/24 at 14:33. Electronically submitted by Osmar Tillman ([email or web address]). LISA PULLIAM May 16, 2024 14:33
[2024-05-16] MEDS: ACETAMINOPHEN 500 MG TAB PO ONE (14:35)
[2024-05-16 14:40] VITALS: TEMP 98.8
== END 2024-05-16 14:41 | disposition home or self-care (01) ==
LOC: ER 13:26
DX: S61.011A Laceration without foreign body of right thumb without damage to nail, initial encounter (principal); F41.9 Anxiety disorder, unspecified; F17.210 Nicotine dependence, cigarettes, uncomplicated; Z79.899 Other long term (current) drug therapy; W26.8XXA Contact with other sharp object(s), not elsewhere classified, initial encounter; Y93.89 Activity, other specified; Y92.89 Other specified places as the place of occurrence of the external cause; Y99.8 Other external cause status

== ENCOUNTER 2024-05-21 18:08 | Inpatient (IN) | payer MEDICAID ==
[~2024-05-21] VITALS: Ht 162.6 cm; Wt 73.2 kg
--- NOTE | 2024-05-21 18:55 | ED.PDOC ---
History of Present Illness HPI Comments 29-year-old female presents with a chief complaint of weakness s/p syncope episode. Patient reports that she was visiting her grandfather in the ICU when she began to feel hot and see bright lights. Patient mentions that she was sitting down and then passed out. Patient is currently 9 weeks . Patient mentions that she last saw her HAND POTTER on Monday and is currently taking prenatals. Patient mentions that right now she is just feeling very weak. Denies hitting her head. Time Seen by MD: 18:44 Primary Care Provider: BAILEE Reviewed Notes: Medications, Allergies Allergies: Coded Allergies: No Known Drug Allergy (Unverified Allergy, Unknown, 12/30/19) Home Meds Active Scripts Acetaminophen (Tylenol Extra Strength Fo) 500 Mg Tab, 500 MG PO TID, #30 TAB Prov:LISA PULLIAM 05/04/24 Ondansetron Odt 4MG Tab (ZOFRAN PO) 4 Mg Tb, 4 MG PO BID, #20 TAB ODT TAB-DISSOLVE IN MOUTH, THEN SWALLOW Prov:LISA PULLIAM 05/04/24 Ibuprofen (Ibuprofen) 800 Mg Tab, 1 TAB PO TID, #30 TAB Prov:LISA PULLIAM 02/24/24 Prednisone (Prednisone) 20 Mg Tab, 60 MG PO DAILY for 7 Days, #21 TAB Prov:LISA PULLIAM 02/24/24 Amoxicillin Trihydrate (Amoxicillin) 875 Mg Tab, 1 TAB PO BID, #20 TAB Prov:ILSA PULLIAM 02/24/24 Amoxicillin & Pot Clavulanate (AUGMENTIN TABLET) 875 Mg Tb, 875 MG PO BID for 7 Days, #14 TAB Prov:HUDSON ADAM MD 12/18/23 Tramadol HCl (Tramadol HCl) 50 Mg Tab, 50 MG PO BID PRN, #14 TAB Prov:HUDSON ADAM MD 12/18/23 Ondansetron Odt 4MG Tab (ZOFRAN PO) 4 Mg Tb, 4 MG PO TID PRN, #20 TAB ODT TAB-DISSOLVE IN MOUTH, THEN SWALLOW Prov:HUDSON ADAM MD 12/18/23 Reported Medications Pantoprazole Sodium Sesquihydr (Pantoprazole Sodium) 40 Mg Tab, 40 MG PO, TAB 12/16/23 Information Source: Patient Mode of Arrival: Wheelchair Severity: Moderate Timing: Hours Duration: Since onset Prehospital treatment: None Past Medical History PAST MEDICAL HISTORY: Anxiety Surgical History: Denies all surgeries KILN FIREMAN History: Denies all KILN FIREMAN Hx Family History Family History: Reviewed,noncontributory to illness Social History Smoker: Cigarettes Alcohol: Occasionally Drugs: Marijuana Lives In: Home Constitutional: reports: weakness; denies: chills, diaphoresis, fatigue, fever, malaise, sweats, others EENTM: denies: blurred vision, double vision, ear bleeding, ear discharge, ear drainage, ear pain, ear ringing, eye pain, eye redness, hearing loss, mouth pain, mouth swelling, nasal discharge, nose bleeding, nose congestion, nose pain, photophobia, tearing, throat pain, throat swelling, voice changes, others Respiratory: denies: cough, hemoptysis, orthopnea, SOB at rest, shortness of breath, SOB with excertion, stridor, wheezing, others Cardiovascular: reports: syncope; denies: chest pain, dizzy spells, diaphoresis, Dyspnea on exertion, edema, irregular heart beat, left arm pain, lightheadedness, palpitations, PND, others Gastrointestinal: denies: abdomen distended, abdominal pain, blood streaked bowels, constipated, diarrhea, dysphagia, difficulty swallowing, hematemesis, melena, nausea, poor appetite, poor fluid intake, rectal bleeding, rectal pain, vomiting, others Genitourinary: reports: ; denies: abnormal vagina bleeding, burning, dyspareunia, dysuria, flank pain, frequency, hematuria, incontinence, pain, vagina discharge, urgency, others Neurological: denies: dizziness, fainting, headache, left sided numbness, left sided weakness, numbness, paresthesia, pre-existing deficit, right sided numbness, right sided weakness, seizure, speech problems, tingling, tremors, weakness, others Musculoskeletal: denies: back pain, gout, joint pain, joint swelling, muscle pain, muscle stiffness, neck pain, others Integumetry: denies: bruises, change in color, change in hair/nails, dryness, laceration, lesions, lumps, rash, wounds, others Allergic/Immunocompromised: denies: Difficulty Healing, Frequent Infections, Hives, Itching, others Hematologic/Lymphatic: denies: anemia, blood clots, easy bleeding, easy bruising, swollen glands, others Endocrine: denies: excessive hunger, excessive sweating, excessive thirst, excessive urination, flushing, intolerance to cold, intolerance to heat, unexplained weight gain, unexplained weight loss, others Psychiatric: denies: anxiety, bipolar disorder, depression, hopeless, panic disorder, schizophrenia, sleepless, suicidal, others All Other Systems: Reviewed and Negative Physical Exam General Appearance: Mild Distress, Thin, Other (DIAPHORECTIC) HEENT: Normal ENT Inspection, Pharynx Normal, TMs Normal Neck: Full Range of Motion, Non-Tender, Normal, Normal Inspection Respiratory: Chest Non-Tender, Lungs Clear, No Accessory Muscle Use, No Respiratory Distress, Normal Breath Sounds Cardiovascular: No Edema, No JVD, No Murmur, No Gallop, Normal Peripheral Pulses, Regular Rate/Rhythm Breast Exam: Deferred Gastrointestinal: No Organomegaly, Non Tender, No Pulsatile Mass, Normal Bowel Sounds, Soft Genitalia: Deferred Pelvic: Deferred Rectal: Deferred Extremities: No calf tenderness, Normal capillary refill, Normal inspection, Normal range of motion, Non-tender, No pedal edema Musculoskeletal : Apperance: Normal 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 Was a procedure done?: No Differential Dx Considerations may include: Electrolyte abnormality, infectious etiology, cardiac etiology, ACS X-Ray, Labs, Meds, VS Vital Signs Date Time Temp Pulse Resp B/P (MAP) Pulse Ox O2 Delivery O2 Flow Rate FiO2 05/21/24 19:03 98.3 91 16 110/71 (84) 96 05/21/24 18:51 89 Lab Test 05/21/24 21:39 05/21/24 19:57 05/21/24 18:54 05/21/24 18:46 Range/Units Troponin I High Sensitivity < 3 L < 3 L < 3 L </=34 ng/L White Blood Count 9.2 4.4-10.8 10^3/uL Red Blood Count 4.51 4.0-5.20 10^6/uL Hemoglobin 13.9 12.2-16.2 g/dL Hematocrit 39.8 36.0-46.0 % Mean Corpuscular Volume 88.3 80.0-100.0 fL Mean Corpuscular Hemoglobin 30.9 28.0-32.0 pg Mean Corpuscular Hemoglobin Concent 35.0 32.0-36.0 g/dL Red Cell Distribution Width 13.9 11.8-14.3 % Platelet Count 200 140-450 10^3/uL Mean Platelet Volume 9.0 6.9-10.8 fL Neutrophils (%) (Auto) 65.7 37.0-80.0 % Lymphocytes (%) (Auto) 26.6 10.0-50.0 % Monocytes (%) (Auto) 5.3 0.0-12.0 % Eosinophils (%) (Auto) 1.6 0.0-7.0 % Basophils (%) (Auto) 0.8 0.0-2.0 % Neutrophils # (Auto) 6.0 1.6-8.6 10 ^3/uL Lymphocytes # (Auto) 2.4 0.4-5.4 10 ^3/uL Monocytes # (Auto) 0.5 0-1.3 10 ^3/uL Eosinophils # (Auto) 0.1 0-0.8 10 ^3/uL Basophils # (Auto) 0.1 0-0.2 10 ^3/uL Nucleated Red Blood Cells 0.1 % Sodium Level 139 136-145 mmol/L Potassium Level 3.4 L 3.5-5.1 mmol/L Chloride Level 107 98-107 mmol/L Carbon Dioxide Level 23 20-31 mmol/L Anion Gap 9 5-15 Blood Urea Nitrogen 8 L 9-23 mg/dL Creatinine 0.58 0.550-1.02 mg/dL Glomerular Filtration Rate Calc 126 >90 mL/min BUN/Creatinine Ratio 13.8 10.0-20.0 Serum Glucose 99 74-106 mg/dL Calcium Level 9.9 8.7-10.4 mg/dL POC Glucose 141 H 70-106 mg/dl Time of 1ST Reevaluation: 19:14 Reevaluation 1ST: Unchanged Patient Education/Counseling: Diagnosis, Treatment, Prognosis Family Education/Counseling: No Family Present Departure 1 Departure Time of Disposition: 23:48 (Patient presented with syncope today and should be admitted. Data: 1. I ordered and reviewed the result of at least 3 labs including a CBC, BMP, and troponin. 2. I independently interpreted the following tests: EKG which shows a normal sinus .Risk:This patient has a high risk of morbidity due to further diagnostic testing or treatment and may suffer from an acute cardiac, neurologic, or infectious disorder. Rationale: Patient should be admitted to the hospital for further management.) Impression: Primary Impression: Syncope and collapse Additional Impression: Qualified Codes: Z3A.09 - 9 weeks gestation of Disposition: ADMITTED INPATIENT Admit to: Med Surg Condition: Serious Critical Care Note Critical Care Time?: No Stability Stability form required: No I personally scribed for JUAN J DRUMMOND MD ([email or web address]) on 05/21/24 at 18:55. Elect ronically submitted by Travis Juárez ([email or web address]). JUAN J DRUMMOND MD May 21, 2024 18:55
[2024-05-21] MEDS ORDERED: SODIUM CHLORIDE 0.9% 1,000 ML IV ONE (19:00)
[2024-05-21] MEDS ORDERED: ONDANSETRON HCL 4 MG/2 ML VIAL IV ONE (19:00)
[2024-05-21 19:17] LABS: Basophils # (auto) 0.1 10 ^3/uL (0-0.2); Basophils % (auto) 0.8 % (0.0-2.0); Eosinophils # (auto) 0.1 10 ^3/uL (0-0.8); Eosinophils % (auto) 1.6 % (0.0-7.0); Hematocrit 39.8 % (36.0-46.0); Hemoglobin 13.9 g/dL (12.2-16.2); Lymphocytes # (auto) 2.4 10 ^3/uL (0.4-5.4); Lymphocytes % (auto) 26.6 % (10.0-50.0); Mean Corpuscular Hemoglobin 30.9 pg (28.0-32.0); Mean Corpuscular Volume 88.3 fL (80.0-100.0); Monocytes # (auto) 0.5 10 ^3/uL (0-1.3); Monocytes % (auto) 5.3 % (0.0-12.0); Neutrophils % (auto) 65.7 % (37.0-80.0); Nucleated Red Blood Cells % 0.1 %; Platelet Count (auto) 200 10^3/uL (140-450); Red Blood Cells 4.51 10^6/uL (4.0-5.20); Red Cell Distribution Width 13.9 % (11.8-14.3); White Blood Cell 9.2 10^3/uL (4.4-10.8)
[2024-05-21 19:27] LABS: Chloride 107 mmol/L (98-107); Sodium 139 mmol/L (136-145)
[2024-05-21 19:28] LABS: Anion Gap 9 (5-15); Calcium 9.9 mg/dL (8.7-10.4); Carbon Dioxide 23 mmol/L (20-31)
[2024-05-21 19:33] LABS: BUN/Creatinine Ratio 13.8 (10.0-20.0); Glucose 99 mg/dL (74-106)
[2024-05-21 19:40] LABS: Blood Urea Nitrogen 8 mg/dL (9-23); Potassium 3.4 mmol/L (3.5-5.1)
[2024-05-22] VITALS (7 sets, daily range): BP systolic 100–111; BP diastolic 61–69; PULSE 69–85; RESP 17–20; TEMP 98.2–98.6; O2SAT 97–100
[2024-05-22] MEDS ORDERED: MORPHINE SULFATE INJ 2 MG/ml SYRG IV PRN (00:15)
[2024-05-22] MEDS ORDERED: DOCUSATE SOD 100 MG CAP PO PRN (00:15)
[2024-05-22] MEDS ORDERED: NITROGLYCERIN 0.4 MG SL TAB SL PRN (00:15)
[2024-05-22 01:12] LABS: Thyroid Stimulating Hormone 1.94 uIU/mL (0.55-4.78)
--- NOTE | 2024-05-22 01:20 | DVHHPRES ---
History of Present Illness Resident Creating Document: MYRON PECK RESIDENT History of Present Illness Patient is 29 years old female with no significant past medical history came with a complaint of syncope. As per patient she came to visit her grandma at ICU at [facility] where she was feeling dizzy, seeing some CXR light also had palpitation like her heart was racing, saw some flushing of light, then some staff were bring her to the ER on on the way she lost her consciousness and as per patient she sided she lost her consciousness for 30. Regaining consciousness she had some confusion and profuse sweating but denied any incontinence of bowel or bladder or tongue bite. Patient reported she never had this kind of symptoms before and she was eating and drinking well but she was feeling state that her grandma was admitted to ICU. Patient also had history of vaginal bleeding 1 week before and she was diagnosed with subchorionic hemorrhage. Patient denied any chest pain, shortness of breath, fever, constipation or diarrhea, acute joint pain or swelling, dysarthria or change in vision. EKG with a sinus rhythm, examination. Lab workup revealed mild hypokalemia with potassium 3.4, blood sugar 141, serum glucose 99, other initial lab workup was within normal limit. On 05/04/2024 ultrasound revealed -1. IUP single live fetus 5 weeks 5 days AUA corresponding to an ROSE of 12/30/2024. 2. Subchorionic hemorrhage measuring up to 1.9 cm. Takes at home Past Medical History No significant past medical Past Surgical History Cholecystectomy in December 16, 2023 Family History Bypass fibromyalgia Past Social History Patient reported sober for last 2 months from alcoholism, ex-smoker last smoked moment before, ex substance abuse last used weed 2 months ago as per patient, Lives with the at home Review of Systems Review of Systems Allergy- NKDA Patient was seen today at the bedside. Cardiovascular- deny acute chest pain or shortness of breath or cough Respiratory- denies cough or short of breath or wheezing Gastrointestinal- denies any rectal bleeding, nausea or vomiting Musculoskeletal-denies acute joint swelling or tenderness or redness Neurological- denies acute dysarthria, dysphagia, change in vision Psychiatry- denies depression or SI or HI Skin- denies acute rash or purpura Allergies: Coded Allergies: No Known Drug Allergy (Unverified Allergy, Unknown, 12/30/19) Medications Current Medications Medications Dose Ordered Sig/Sebastián Route Start Time Stop Time Status Last Admin Dose Admin Sodium Chloride 10 ml Q8HR IV 05/22/24 06:00 Docusate Sodium 100 mg BIDPRN PRN PO 05/22/24 00:15 Acetaminophen 650 mg Q6HP PRN PO 05/22/24 00:15 Nitroglycerin 0.4 mg Q5MINP PRN SL 05/22/24 00:15 Morphine Sulfate 2 mg Q30M PRN IV 05/22/24 00:15 Prenat Multivit/ Barrel Inspector/Iron/Folic Ac 1 DAILY PO 05/22/24 10:00 Exam Vital Signs Vital Signs Date Time Temp Pulse Resp B/P (MAP) Pulse Ox O2 Delivery O2 Flow Rate FiO2 05/21/24 19:03 98.3 91 16 110/71 (84) 96 Exam General examination- awake, alert oriented, conversant HEENT- PEERLA, no acute nasal discharge Cardiovascular- S1-S2 audible, rate and rhythm regular, no murmur Respiratory- CTAB, no wheeze or rhonchi Gastrointestinal-nontender, bowel sound+. Nondistended Musculoskeletal-no acute joint swelling or tenderness or redness# Lower extremity- no leg edema Neurological- cranial nerves intact, no acute dysarthria or dysphagia Psychiatry- denies depression or SI or HI Skin- no acute rash or purpura Labs/Xrays Labs Test 05/22/24 00:23 05/21/24 21:39 05/21/24 18:54 05/21/24 18:46 Range/Units Thyroid Stimulating Hormone (TSH) 1.94 0.55-4.78 uIU/mL Troponin I High Sensitivity < 3 L </=34 ng/L White Blood Count 9.2 4.4-10.8 10^3/uL Red Blood Count 4.51 4.0-5.20 10^6/uL Hemoglobin 13.9 12.2-16.2 g/dL Hematocrit 39.8 36.0-46.0 % Mean Corpuscular Volume 88.3 80.0-100.0 fL Mean Corpuscular Hemoglobin 30.9 28.0-32.0 pg Mean Corpuscular Hemoglobin Concent 35.0 32.0-36.0 g/dL Red Cell Distribution Width 13.9 11.8-14.3 % Platelet Count 200 140-450 10^3/uL Mean Platelet Volume 9.0 6.9-10.8 fL Neutrophils (%) (Auto) 65.7 37.0-80.0 % Lymphocytes (%) (Auto) 26.6 10.0-50.0 % Monocytes (%) (Auto) 5.3 0.0-12.0 % Eosinophils (%) (Auto) 1.6 0.0-7.0 % Basophils (%) (Auto) 0.8 0.0-2.0 % Neutrophils # (Auto) 6.0 1.6-8.6 10 ^3/uL Lymphocytes # (Auto) 2.4 0.4-5.4 10 ^3/uL Monocytes # (Auto) 0.5 0-1.3 10 ^3/uL Eosinophils # (Auto) 0.1 0-0.8 10 ^3/uL Basophils # (Auto) 0.1 0-0.2 10 ^3/uL Nucleated Red Blood Cells 0.1 % Sodium Level 139 136-145 mmol/L Potassium Level 3.4 L 3.5-5.1 mmol/L Chloride Level 107 98-107 mmol/L Carbon Dioxide Level 23 20-31 mmol/L Anion Gap 9 5-15 Blood Urea Nitrogen 8 L 9-23 mg/dL Creatinine 0.58 0.550-1.02 mg/dL Glomerular Filtration Rate Calc 126 >90 mL/min BUN/Creatinine Ratio 13.8 10.0-20.0 Serum Glucose 99 74-106 mg/dL Calcium Level 9.9 8.7-10.4 mg/dL POC Glucose 141 H 70-106 mg/dl Assessment/Plan Assessment/Plan # syncope likely due to vasovagal/orthostatic/seizure -EKG with a sinus rhythm, no ST elevation -monitor orthostatic vitals -pending echo 2D -continue current management # hypokalemia -potassium 3.4 -replenished -monitor potassium level # , 9 weeks of -05/04/2024 ultrasound revealed- IUP single live fetus 5 weeks 5 days AUA corresponding to an ROSE of 12/30/2024. 2. Subchorionic hemorrhage measuring up to 1.9 cm. -continue as prescribed -ordered Gynecology and Obstetrics consult # history of- Subchorionic hemorrhage measuring up to 1.9 cm. --continue as prescribed -ordered Gynecology and Obstetrics consult Goals of care/advance care planning; FULL CODE; discussed with the patient >15 minutes PUD prophylaxis: DVT prophylaxis: Patient ambulating Plan discussed with Dr. Johnson, nursing staff, patient Total time spent on patient evaluation, chart review, assessment and plan, discussion discussion >30 minutes Plan discussed with: Patient My Orders Orders - MYRON PECK Procedure Category Date Status Time Admit ADMIT 05/22/24 Transmitted 00:02 Code Status CODE 05/22/24 Transmitted 00:02 Sodium Chloride Lock PHA 05/22/24 In Process (Saline Lock Ns) 06:00 Docusate Sodium PHA 05/22/24 In Process Capsule (Colace 00:15 Complete Blood Count LAB 05/23/24 Verified 04:00 Comprehensive LAB 05/23/24 Verified Metabolic Panel 04:00 Echo 2d Mode Cardiac US 05/22/24 Logged DOP 00:02 Acetaminophen Tablet PHA 05/22/24 In Process (Tylenol Tablet) 00:15 Nitroglycerin PHA 05/22/24 In Process Sublingual (Ntrostat 00:15 Morphine Sulfate PHA 05/22/24 In Process Injection 00:15 Oxygen By Nasal RT 05/22/24 Transmitted Cannula 00:02 Stat Ekg For Chest JAREK 05/22/24 In Process Pain 00:02 Notify Md Of Changes JAREK 05/22/24 In Process From Base 00:02 Offal Baler For JAREK 05/22/24 In Process 24 Hours 00:02 Emergency Dysrhythmia JAREK 05/22/24 In Process Protocol 00:02 Rhythm Strips Once JAREK 05/22/24 In Process Every Shift 00:02 Thyroid Stimulating LAB 05/22/24 In Process Hormone 00:03 Magnesium LAB 05/22/24 In Process 00:03 Electrocardigram EKG 05/22/24 Logged 00:03 Electrocardigram EKG 05/22/24 Logged 01:03 Beta Hcg, Quantitative LAB 05/22/24 In Process 00:03 Drug Screen LAB 05/22/24 Logged 00:05 Blood Alcohol LAB 05/22/24 In Process 00:05 Orthostatic Vital ORDERS 05/22/24 Transmitted Signs 00:05 * [employer] Product Manager Consultation CONS 05/22/24 Transmitted 00:09 Vitamin PHA 05/22/24 In Process Tablet (Prenavite 10:00 MYRON PECK RESIDENT May 22, 2024 01:20
[2024-05-22 01:35] LABS: Beta HCG, Quantitative 81395.1 mIU/mL (1.5-4.2)
[2024-05-22 01:54] LABS: Folate (Folic Acid) 15.01 ng/mL (>5.38)
[2024-05-22] MEDS: POTASSIUM EFFERVESENT TAB 25 MEQ PO ONE (04:18)
[2024-05-22 05:34] LABS: Urine Bacteria FEW /hpf (None Seen); Urine Blood Negative /uL (Negative); Urine Clarity Clear (Clear); Urine Color Colorless (Yellow); Urine Mucus FEW (None Seen); Urine Protein, UAD Negative (Negative); Urine Specific Gravity 1.009 (1.001-1.035); Urine Urobilinogen Normal (Negative); Urine WBC 4 /hpf (0 - 5); Urine pH 6.5 (5.0-9.0)
[2024-05-22 05:35] LABS: Amphetamine Screen, Urine Neg (NEGATIVE); Barbiturate Scree,Urine Neg (NEGATIVE); Benzodiazephine Screen, Urine Neg (NEGATIVE); Cannabinoid Screen, Urine Neg (NEGATIVE); Cocaine Screen, Urine Neg (NEGATIVE); Opiate Scree,Urine Neg (NEGATIVE); Phencyclidine Screen, Urine Neg (NEGATIVE)
[2024-05-22] MEDS: SODIUM CHLOR 0.9% PF (SALINE LOCK) 10ML VIAL/SYR IV SCH (06:11)
[2024-05-22 07:20] LABS: Prothrombin Time 10.6 sec (9.3-11.8)
[2024-05-22 07:30] LABS: Basophils # (auto) 0 10 ^3/uL (0-0.2); Basophils % (auto) 0.3 % (0.0-2.0); Eosinophils # (auto) 0.2 10 ^3/uL (0-0.8); Eosinophils % (auto) 2.4 % (0.0-7.0); Hematocrit 40.9 % (36.0-46.0); Hemoglobin 13.9 g/dL (12.2-16.2); Lymphocytes % (auto) 34.4 % (10.0-50.0); Mean Corpuscular Hemoglobin 30.1 pg (28.0-32.0); Mean Corpuscular Hgb Conc. 33.9 g/dL (32.0-36.0); Mean Corpuscular Volume 88.9 fL (80.0-100.0); Monocytes # (auto) 0.4 10 ^3/uL (0-1.3); Monocytes % (auto) 5.2 % (0.0-12.0); Neutrophils % (auto) 57.7 % (37.0-80.0); Nucleated Red Blood Cells % 0.1 %; Platelet Count (auto) 195 10^3/uL (140-450); Red Cell Distribution Width 14.2 % (11.8-14.3); White Blood Cell 8.7 10^3/uL (4.4-10.8)
[2024-05-22 07:43] LABS: Alanine Aminotransferase 10 U/L (7-40); Albumin 4.4 g/dL (3.2-4.8); Alkaline Phosphatase 61 U/L (46-116); Anion Gap 8 (5-15); BUN/Creatinine Ratio 13.1 (10.0-20.0); Bilirubin, Total 0.3 mg/dL (0.2-1.0); Calcium 9.9 mg/dL (8.7-10.4); Carbon Dioxide 24 mmol/L (20-31); Chloride 107 mmol/L (98-107); Glucose 85 mg/dL (74-106); Potassium 3.5 mmol/L (3.5-5.1); Sodium 139 mmol/L (136-145); Total Protein 6.9 g/dL (5.7-8.2)
[2024-05-22 07:44] LABS: Aspartate Aminotransferase 8 U/L (13-40); Blood Urea Nitrogen 8 mg/dL (9-23)
--- NOTE | 2024-05-22 08:26 | DVH ---
OB ULTRASOUND <14 WEEKS: HISTORY: Subchorionic hematoma (evaluate improvement) TECHNIQUE: Multiple real-time grayscale sonographic images of the pelvis with duplex Doppler color f low, spectral and M-mode analysis. TRANSDUCERS: Transabdominal COMPARISON: US OB ULTRASOUND COMP LESS 14WKS on DOS: 05/04/24 FINDINGS: The uterus measures 11.1 x 7.7 x 5.8 cm The cervix is not visualized Right ovary measures 4.5 x 1.2 x 1.5 cm with normal Doppler color flow. Left ovary measures 4.3 x 2.1 x 2.6 cm with normal Doppler color flow. Left ovarian cyst measures 2.0 cm. IUP single fetus at 8 weeks and 4 days average ultrasound age based on mean crown-rump length of 2.1 cm and gestational sac size of 3.1 cm heart rate detected at 174 beats per minute. Yolk sac is present. Amniotic fluid is subjectively within normal limits Amarilis-gestational space: Subchorionic hematoma is present measuring 2.4 cm. IMPRESSION: IUP single live fetus 8 weeks and 4 days AUA corresponding to an ROSE of 12/28/2024. Redemonstration of subchorionic hematoma measuring up to 2.4 cm, previously 1.9 cm. Recommend close clinical and sonographic follow-up.
[2024-05-22] MEDS: PRENATAL VITAMIN TAB PO SCH (10:21)
[2024-05-22] MEDS: ACETAMINOPHEN 325 MG TAB PO ONE (10:22)
--- NOTE | 2024-05-22 11:32 | DVHPNRES ---
Progress Note Date Seen: May 22, 2024 Resident Creating Document: SYLVIA REBOLLAR RESIDENT Has the PT tested + for MRSA If YES, has PT been informed?: No Medical Necessity Reason Pt with a Central, PICC or Fol: No Subjective Review of Systems A 29 year old female with no significant past medical history came with a complaint of syncope. As per patient she came to visit her grandma at ICU at [facility] where she was feeling dizzy, seeing some CXR light also had palpitation like her heart was racing, saw some flushing of light, then some staff were bring her to the ER on on the way she lost her consciousness and as per patient she sided she lost her consciousness for 30. Regaining consciousness she had some confusion and profuse sweating but denied any incontinence of bowel or bladder or tongue bite. Patient reported she never had this kind of symptoms before and she was eating and drinking well but she was feeling state that her grandma was admitted to ICU. Patient also had history of vaginal bleeding 1 week before and she was diagnosed with subchorionic hemorrhage. Patient denied any chest pain, shortness of breath, fever, constipation or diarrhea, acute joint pain or swelling, dysarthria or change in vision. EKG with a sinus rhythm, examination. Lab workup revealed mild hypokalemia with potassium 3.4, blood sugar 141, serum glucose 99, other initial lab workup was within normal limit. On 05/04/2024 ultrasound revealed -1. IUP single live fetus 5 weeks 5 days AUA corresponding to an ROSE of 12/30/2024. 2. Subchorionic hemorrhage measuring up to 1.9 cm. Takes at home obgyn: Dr Tran Barba 2 appts Past Medical History No significant past medical Past Surgical History Cholecystectomy in December 16, 2023 Family History Bypass fibromyalgia Past Social History Patient reported sober for last 2 months from alcoholism, ex-smoker last smoked moment before, ex substance abuse last used weed 2 months ago as per patient, Lives with the at home Objective vital signs Vital Sign Date Time Temp Pulse Resp B/P (MAP) Pulse Ox O2 Delivery O2 Flow Rate FiO2 05/22/24 08:00 Room Air* 0 21 05/22/24 03:50 98.6 72 18 105/69 (81) 99 98.6 Total Intake and Output 05/21/24 05/21/24 05/22/24 15:00 23:00 07:00 Intake Total 250 ml Balance 250 ml medications Current Medications Medications Dose Ordered Sig/Sebastián Route Start Time Stop Time Status Last Admin Dose Admin Sodium Chloride 10 ml Q8HR IV 05/22/24 06:00 05/22/24 06:11 10 ML Docusate Sodium 100 mg BIDPRN PRN PO 05/22/24 00:15 Acetaminophen 650 mg Q6HP PRN PO 05/22/24 00:15 Nitroglycerin 0.4 mg Q5MINP PRN SL 05/22/24 00:15 Morphine Sulfate 2 mg Q30M PRN IV 05/22/24 00:15 Prenat Multivit/ [place]/Iron/Folic Ac 1 DAILY PO 05/22/24 10:00 05/22/24 10:21 1 Ceftriaxone Sodium 50 ml @ 100 mls/hr DAILY@09 IV 05/22/24 09:00 Examination General examination- awake, alert oriented, conversant HEENT- PEERLA, no acute nasal discharge Cardiovascular- S1-S2 audible, rate and rhythm regular, no murmur Respiratory- CTAB, no wheeze or rhonchi Gastrointestinal-nontender, bowel sound+. Nondistended Musculoskeletal-no acute joint swelling or tenderness or redness# Lower extremity- no leg edema Neurological- cranial nerves intact, no acute dysarthria or dysphagia Psychiatry- denies depression or SI or HI Skin- no acute rash or purpura laboratory and microbiology Laboratory Tests 05/22/24 04:40 Test 05/22/24 04:40 Range/Units Serum Glucose 85 74-106 mg/dL Problem List/Assessment/Plan Problem List/Assessment/Plan # syncope, vasovagal -EKG with a sinus rhythm, no ST elevation -monitor orthostatic vitals -normal echo -continue current management # hypokalemia -potassium 3.5 -replenished -monitor potassium level # , 9 weeks of -05/04/2024 ultrasound revealed- IUP single live fetus 5 weeks 5 days AUA corresponding to an ROSE of 12/30/2024. 2. Subchorionic hemorrhage measuring up to 1.9 cm. 05/22/2024 IUP single live fetus 8 weeks and 4 days AUA corresponding to an ROSE of 12/28/2024. Redemonstration of subchorionic hematoma measuring up to 2.4 cm, previously 1.9 cm. -continue as prescribed Gynecology and Obstetrics consult: f/u as outpatient # history of- Subchorionic hemorrhage Strict rest --continue as prescribed Gynecology and Obstetrics consult: f/u as outpatient Goals of care/advance care planning; FULL CODE; discussed with the patient >15 minutes Plan discussed with Dr. Harrison, nursing staff, patient Total time spent on patient evaluation, chart review, assessment and plan, discussion discussion >30 minutes Plan discussed with: Patient Plan discussed with: Patient, Other (rn) My Orders My Orders Orders - SYLVIA REBOLLAR Procedure Category Date Status Time Ceftriaxone 1gm/50ml PHA 05/22/24 In Process D5w (Rocephin) 09:00 Date of Service: May 22, 2024 Billing Provider: HOUSTON HARRISON MD Common Visit Codes: 05587-[id number] INP/OBS CARE(HIGH) SYLVIA REBOLLAR RESIDENT May 22, 2024 11:32 HOUSTON HARRISON MD May 27, 2024 18:15
--- NOTE | 2024-05-22 13:04 | DVHSR ---
APPROVED REPORT EXAM: Two-dimensional and M-mode echocardiogram with Doppler and color Doppler. Blood Pressure: 105/69 mmHg INDICATION Syncope RISK FACTORS Height: 5'4", Weight: 157 DIMENSIONS LVDd4.6 (3.8-5.7cm)LA (2D)3.0 (1.9-4.0cm)Aortic Root2.4 (2.0-3.7cm) LVDs2.7 (2.5-4.0cm)LA (MM) (1.9-4.0cm)Aortic Cusp Exc1.8 (1.5-2.0cm) EF (%) 72.0 (55-70%)Rt. Atrium (1.9-4.0cm)Asc. Aorta2.5 cm IVSd0.7 (0.7-1.1cm)RV (D) (1.8-2.4cm) PWd0.6 (0.7-1.1cm) Mitral Valve MitralMitral Stenosis E/A ratio0.02D MVAcm2 Aortic Valve Aortic ValveAortic Stenosis V11.17m/Charan Mean GR.5mmHg V21.37m/Charan Peak GR.8mmHg LVOT Diameter1.9 (1.8-2.4cm)Doppler AVA2.42cm2 Pulmonic Valve V21.04m/s Other Information Quality : Technically LimitedRhythm : Technically limited study due to body habitus. Conclusion Normal left ventricular size and dimension. Normal left ventricular systolic function estimated ejec tion fraction 55%. Normal diastolic function. Normal right ventricular size and dimension. Normal right ventricular systolic function. Normal biatrial size and dimension. Normal aortic valve structure and function. Normal mitral valve structure and function. Normal tricuspid valve structure and function. The pulmonary valve is grossly normal. No pericardial effusion.
[2024-05-22] MEDS: cefTRIAXone 1GM/50ML D5W 50 ML IV SCH (13:15)
--- NOTE | 2024-05-22 14:51 | DVHINCON2 ---
DATE OF CONSULTATION: 05/22/2024 REASON FOR CONSULTATION: and syncopal episode. HISTORY OF PRESENT ILLNESS: The patient is a 29-year-old 3, para 2 with EDC 12/21, estimated gestational age of 9 weeks, admitted for syncopal episode. The patient was visiting her grandfather in ICU when she began having dizziness and she passed out. The patient has been having some vaginal bleeding, light, and she was noted to have a hematoma. Pelvic ultrasound revealed a subchorionic hematoma, which has gotten slightly larger. She denies having any abnormal vaginal discharge. PAST MEDICAL HISTORY: Positive for anxiety. PAST SURGICAL HISTORY: Cholecystectomy. SOCIAL HISTORY: The patient was a previous smoker, currently none. FAMILY HISTORY: Unremarkable. ALLERGIES: No known drug allergies. REVIEW OF SYSTEMS: CONSTITUTIONAL: Positive for weakness. RESPIRATORY: No cough, hemoptysis. CARDIOVASCULAR: Positive for syncope. No dyspnea. GASTROINTESTINAL: No abdominal pain, diarrhea or constipation. GENITOURINARY: No abnormal vaginal discharge. NEUROLOGICAL: Denies headache, numbness. MUSCULOSKELETAL: No back pain, joint pain. ENDOCRINE: Denies excessive hunger. PSYCHIATRIC: Denies depression. Positive for anxiety. PHYSICAL EXAMINATION: VITAL SIGNS: Stable, afebrile. HEENT: Within normal limits. CARDIOVASCULAR: Regular rate and rhythm. LUNGS: Clear to auscultation. BREASTS: Symmetrical. No masses. ABDOMEN: Soft, nontender. PELVIC: Deferred due to current subchorionic hematoma do not recommend a vaginal exam. EXTREMITIES: No clubbing, cyanosis or edema. IMPRESSION: * Intrauterine at 9 weeks with subchorionic bleed. * Syncopal episode, probably secondary to vasovagal reflex, related. * Anxiety. RECOMMENDATION: I have advised the patient to abstain from any strenuous physical activity and to have pelvic rest. Follow up immediately after discharge with OB. I advised the patient to remain hydrated, with smaller meals more frequent time. We will sign off. Thank you very much for this consultation. DO VINH Guillaume/SIS/ASHLIE TID: [id number] RECEIPT: [id number]
[2024-05-23 01:00] VITALS: BP 98/60; PULSE 80; RESP 18; TEMP 98.4; O2SAT 96
[2024-05-23 05:00] VITALS: BP 98/59; PULSE 82; RESP 18; TEMP 98.2; O2SAT 96
[2024-05-23 06:47] LABS: Albumin 3.9 g/dL (3.2-4.8); Alkaline Phosphatase 53 U/L (46-116); Anion Gap 8 (5-15); BUN/Creatinine Ratio 15.3 (10.0-20.0); Bilirubin, Total 0.4 mg/dL (0.2-1.0); Blood Urea Nitrogen 9 mg/dL (9-23); Calcium 9.5 mg/dL (8.7-10.4); Carbon Dioxide 24 mmol/L (20-31); Glucose 91 mg/dL (74-106); Potassium 4.1 mmol/L (3.5-5.1); Sodium 141 mmol/L (136-145)
[2024-05-23 06:48] LABS: Total Protein 6.1 g/dL (5.7-8.2)
[2024-05-23 06:49] LABS: Alanine Aminotransferase < 9 U/L (7-40); Aspartate Aminotransferase < 8 U/L (13-40); Chloride 109 mmol/L (98-107)
[2024-05-23 06:51] LABS: Basophils # (auto) 0.1 10 ^3/uL (0-0.2); Basophils % (auto) 0.7 % (0.0-2.0); Eosinophils # (auto) 0.3 10 ^3/uL (0-0.8); Eosinophils % (auto) 3.4 % (0.0-7.0); Hematocrit 38.4 % (36.0-46.0); Hemoglobin 12.9 g/dL (12.2-16.2); Lymphocytes # (auto) 2.7 10 ^3/uL (0.4-5.4); Mean Corpuscular Hgb Conc. 33.5 g/dL (32.0-36.0); Mean Corpuscular Volume 89.4 fL (80.0-100.0); Monocytes # (auto) 0.4 10 ^3/uL (0-1.3); Monocytes % (auto) 5.1 % (0.0-12.0); Neutrophils % (auto) 54.8 % (37.0-80.0); Nucleated Red Blood Cells % 0.1 %; Platelet Count (auto) 191 10^3/uL (140-450); Red Blood Cells 4.29 10^6/uL (4.0-5.20); White Blood Cell 7.4 10^3/uL (4.4-10.8)
[2024-05-23 08:00] VITALS: PULSE 68
[2024-05-23 08:13] VITALS: BP 96/55; PULSE 79; RESP 16; TEMP 98; O2SAT 96
[2024-05-23] MEDS: ACETAMINOPHEN 325 MG TAB PO PRN (08:59)
[2024-05-23] MEDS ORDERED: CEPH250C PO (09:49)
[2024-05-23 10:43] VITALS: BP 96/55; PULSE 79; RESP 16; TEMP 36.7; O2SAT 96
[2024-05-23 12:05] VITALS: BP_SYST 102; BP_SYST 105; BP_DIAS 57; BP_DIAS 62; PULSE 120; PULSE 84; RESP 17; TEMP 97.6; TEMP 98.3; O2SAT 96; O2SAT 97
--- NOTE | 2024-05-23 18:39 | DVHDSRES ---
Discharge Summary Date of Admission Resident Creating Document: SYLVIA REBOLLAR RESIDENT May 22, 2024 at 00:03 Date of Discharge: May 23, 2024 Admitting Diagnosis # syncope, vasovagal Labs/Diagnostic Data: Laboratory Results Test 05/23/24 05:53 05/22/24 05:05 05/22/24 04:40 05/22/24 00:23 White Blood Count 7.4 10^3/uL (4.4-10.8) Red Blood Count 4.29 10^6/uL (4.0-5.20) Hemoglobin 12.9 g/dL (12.2-16.2) Hematocrit 38.4 % (36.0-46.0) Mean Corpuscular Volume 89.4 fL (80.0-100.0) Mean Corpuscular Hemoglobin 30.0 pg (28.0-32.0) Mean Corpuscular Hemoglobin Concent 33.5 g/dL (32.0-36.0) Red Cell Distribution Width 14.0 % (11.8-14.3) Platelet Count 191 10^3/uL (140-450) Mean Platelet Volume 9.2 fL (6.9-10.8) Neutrophils (%) (Auto) 54.8 % (37.0-80.0) Lymphocytes (%) (Auto) 36.0 % (10.0-50.0) Monocytes (%) (Auto) 5.1 % (0.0-12.0) Eosinophils (%) (Auto) 3.4 % (0.0-7.0) Basophils (%) (Auto) 0.7 % (0.0-2.0) Neutrophils # (Auto) 4.0 10 ^3/uL (1.6-8.6) Lymphocytes # (Auto) 2.7 10 ^3/uL (0.4-5.4) Monocytes # (Auto) 0.4 10 ^3/uL (0-1.3) Eosinophils # (Auto) 0.3 10 ^3/uL (0-0.8) Basophils # (Auto) 0.1 10 ^3/uL (0-0.2) Nucleated Red Blood Cells 0.1 % Sodium Level 141 mmol/L (136-145) Potassium Level 4.1 mmol/L (3.5-5.1) Chloride Level 109 mmol/L (98-107) Carbon Dioxide Level 24 mmol/L (20-31) Anion Gap 8 (5-15) Blood Urea Nitrogen 9 mg/dL (9-23) Creatinine 0.59 mg/dL (0.550-1.02) Glomerular Filtration Rate Calc 125 mL/min (>90) BUN/Creatinine Ratio 15.3 (10.0-20.0) Serum Glucose 91 mg/dL (74-106) Calcium Level 9.5 mg/dL (8.7-10.4) Total Bilirubin 0.4 mg/dL (0.2-1.0) Aspartate Amino Transferase (AST) < 8 U/L (13-40) Alanine Aminotransferase (ALT) < 9 U/L (7-40) Alkaline Phosphatase 53 U/L (46-116) Total Protein 6.1 g/dL (5.7-8.2) Albumin 3.9 g/dL (3.2-4.8) Urine Color Colorless (Yellow) Urine Clarity Clear (Clear) Urine pH 6.5 (5.0-9.0) Urine Specific [place] 1.009 (1.001-1.035) Urine Protein Negative (Negative) Urine Ketones Negative (Negative) Urine Blood Negative /uL (Negative) Urine Nitrite Negative (Negative) Urine Bilirubin Negative (Negative) Urine Urobilinogen Normal mg/dL (Negative) Urine Leukocyte Esterase Trace /uL (Negative) Urine RBC 2 /hpf (0 - 4) Urine WBC 4 /hpf (0 - 5) Urine Squamous Epithelial Cells Few /hpf (<5) Urine Bacteria Few /hpf (None Seen) Urine Mucus Few (None Seen) Urine Glucose Normal mg/dL (Normal) Urine Opiates Screen Neg (NEGATIVE) Urine Fentanyl Screen Neg (NEGATIVE) Urine Barbiturates Screen Neg (NEGATIVE) Urine Phencyclidine Screen Neg (NEGATIVE) Urine Amphetamines Screen Neg (NEGATIVE) Urine Benzodiazepines Screen Neg (NEGATIVE) Urine Cocaine Screen Neg (NEGATIVE) Urine Cannabinoids Screen Neg (NEGATIVE) Prothrombin Time 10.6 sec (9.3-11.8) Prothrombin Time INR 1.00 (0.9-1.15) D-Dimer, Quantitative 0.46 mg/L FEU (0.0-0.49) Magnesium Level 2.0 mg/dL (1.6-2.6) Hemoglobin A1c 5.1 % A1C (<5.7) Vitamin B12 Level 389 pg/mL (211-911) Folic Acid 15.01 ng/mL (>5.38) Thyroid Stimulating Hormone (TSH) 1.94 uIU/mL (0.55-4.78) Beta HCG, Quantitative 43322.1 mIU/mL (1.5-4.2) Plasma/Serum Blood Alcohol < 3.0 mg/dL (<10) Test 05/21/24 21:39 05/21/24 18:46 Troponin I High Sensitivity < 3 ng/L (</=34) POC Glucose 141 mg/dl (70-106) Other Laboratory Tests 05/23/24 05:53 Brief Hx & Hospital Course: A 27-year-old female, at 9 weeks and 5 days gestation, presented with syncope and vasovagal symptoms. She reported lightheadedness, flushing, and palpitations after emotional stress. EKG showed a sinus rhythm with no ST elevation. She was found to have mild hypokalemia (K+ 3.4), and serum glucose was within normal limits. A ultrasound revealed a live fetus corresponding to an estimated delivery date of 12/30/2024, with a subchorionic hematoma measuring up to 2.4 cm, increased on size 1.9 cm on 05/04/24 . No vaginal bleeding was noted during admission. ECHO normal EF 55% The patient was treated conservatively with potassium supplementation and monitoring of orthostatic vitals. Patient was evaluated by Dr Peterson, ob-water taxi operator, who advised conservative management. She was counseled extensively on care and discharged with follow-up in outpatient obstetrics for continued evaluation of her subchorionic hematoma and progress. Her condition at discharge was stable, with no acute complaints. She was advised on warning signs such as increased bleeding or severe abdominal pain and instructed to seek immediate care if they occur. Bacteria in urine were found, IV AB was started and patient was discharge with oral AB. General examination- awake, alert oriented, conversant HEENT- [place], no acute nasal discharge Cardiovascular- S1-S2 audible, rate and rhythm regular, no murmur Respiratory- CTAB, no wheeze or rhonchi Gastrointestinal-nontender, bowel sound+. Nondistended Musculoskeletal-no acute joint swelling or tenderness or redness# Lower extremity- no leg edema Neurological- cranial nerves intact, no acute dysarthria or dysphagia Psychiatry- denies depression or SI or HI Skin- no acute rash or purpura Case discussed with Dr Harrison Time spent on care 23 min Consults/Reason for consult automobile brake bonder: Subchorionic hematoma Operations or Procedures OB ULTRASOUND <14 WEEKS: HISTORY: Subchorionic hematoma (evaluate improvement) TECHNIQUE: Multiple real-time grayscale sonographic images of the pelvis with duplex Doppler color flow, spectral and M-mode analysis. TRANSDUCERS: Transabdominal COMPARISON: US OB ULTRASOUND COMP LESS 14WKS on DOS: 05/04/24 FINDINGS: The uterus measures 11.1 x 7.7 x 5.8 cm The cervix is not visualized Right ovary measures 4.5 x 1.2 x 1.5 cm with normal Doppler color flow. Left ovary measures 4.3 x 2.1 x 2.6 cm with normal Doppler color flow. Left ovarian cyst measures 2.0 cm. IUP single fetus at 8 weeks and 4 days average ultrasound age based on mean crown-rump length of 2.1 cm and gestational sac size of 3.1 cm heart rate detected at 174 beats per minute. Yolk sac is present. Amniotic fluid is subjectively within normal limits Amarilis-gestational space: Subchorionic hematoma is present measuring 2.4 cm. IMPRESSION: IUP single live fetus 8 weeks and 4 days AUA corresponding to an ROSE of 12/28/2024. Redemonstration of subchorionic hematoma measuring up to 2.4 cm, previously 1.9 cm. Recommend close clinical and sonographic follow-up. Condition at Discharge: Stable Final Diagnosis/Problems List # syncope, vasovagal # hypokalemia # , 9 weeks of # Subchorionic hematoma # Asymptomatic bacteriuria Discharge Disposition: Home Discharge Instruct/Medications Diet: Regular Activity: Light activity Follow Up/Referral: f/u with geochemistry teacher in less than 7 days Medications: see prescription Discharge Statement: "Patient was advised to return to the ER or call 911 if any headaches, dizziness, shortness of breath, chest pain, abdominal pain, bleeding, fevers, or worsening of medical condition. Patient was counseled about treatment plan, medications, possible side effects, patientverbalized understanding. All questions were answered to the best of my ability. This discharge took greater then 30 minutes in planning, reviewing documentation, counseling the patient, and discussing with other team members." ASSESSMENT ASSESSMENT Assessment syncope assymptomatic bacteriuria Date of Service: May 23, 2024 Billing Provider: HOUSTON HARRISON MD Common Visit Codes: 77470-XRJ/OBS DISCH DAY >30min SYLVIA REBOLLAR RESIDENT May 23, 2024 18:39 HOUSTON HARRISON MD May 27, 2024 18:16
== END 2024-05-23 14:16 | disposition home or self-care (01) | DRG 566 ==
LOC: ER 18:08 → TELE 05-22 00:03 → TELE-E-ADS 05-22 03:23
PROVIDERS: ADMIT Internal Medicine Geriatric Medicine; ATTEND Emergency Medicine
DX: O99.281 Endocrine, nutritional and metabolic diseases complicating pregnancy, first trimester (principal); O99.891 Other specified diseases and conditions complicating pregnancy; E87.6 Hypokalemia; O99.341 Other mental disorders complicating pregnancy, first trimester; O99.331 Smoking (tobacco) complicating pregnancy, first trimester; O20.8 Other hemorrhage in early pregnancy; F17.210 Nicotine dependence, cigarettes, uncomplicated; F41.9 Anxiety disorder, unspecified; Z3A.09 9 weeks gestation of pregnancy; Z79.1 Long term (current) use of non-steroidal anti-inflammatories (NSAID); Z79.899 Other long term (current) drug therapy
CPT/HCPCS: 36415; 76801; 80048; 80053; 80307; 80320; 81001; 82607; 82746; 82962; 83036; 83735; 84443; 84484; 84702; 85025; 85379; 85610; 93306; G0378